=== PATIENT | female | born 2000 | race Caucasian/White ===

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

== ENCOUNTER 2018-11-04 09:04 | Outpatient (CLI) | payer OTHER ==
--- NOTE | 2018-11-04 16:09 | MRI Report ---
Reason: L KNEE PAIN Procedure Date: 11/04/2018 Accession Number: [id number] / [id number] Procedure: MRI - Knee LT W/O CPT Code: FULL RESULT: EXAM: LEFT KNEE MRI WITHOUT CONTRAST EXAM DATE: 11/04/2018 10:14 AM. CLINICAL HISTORY: L KNEE PAIN. Injury 3 years ago. Pain worse recently. COMPARISON: KNEE 3 VIEW LT 10/15/2018 9:00 AM. TECHNIQUE: Multiplanar, multisequence T1-weighted and fluid-sensitive sequences of the knee without contrast. Other: None. FINDINGS: Bones: No fractures or subluxations. No marrow edema. No bone lesions. Articular Cartilage: Unremarkable. Medial Meniscus: The medial meniscus is intact. Lateral Meniscus: The lateral meniscus is intact. Cruciate Ligaments: The anterior and posterior cruciate ligaments are intact. Collateral Ligaments: The medial collateral and lateral collateral ligamentous structures are intact. Tendons: The quadriceps, patellar, semimembranosus, and popliteus tendons are unremarkable. Musculature: No edema or fatty atrophy. Other: No effusion. No popliteal cyst. No loose bodies. The medial and lateral retinacula are intact. The subcutaneous tissues and fat pads are unremarkable. IMPRESSION: No MRI abnormalities in the knee. [facility] MUSCULOSKELETAL RADIOLOGY SECTION
== END 2018-11-04 09:05 | disposition home or self-care (01) ==
LOC: DI 09:04
PROVIDERS: ATTEND Orthopaedic Surgery
DX: M25.562 Pain in left knee (principal)

== ENCOUNTER 2018-12-15 11:16 | Emergency (ER) | payer OTHER ==
[2018-12-15 11:41] LABS: BILIRUBIN,URINE NEGATIVE (NEGATIVE); GLUCOSE, URINE (UA) NEGATIVE (NEGATIVE); KETONES,URINE (UA) NEGATIVE (NEGATIVE); LEUKOCYTE ESTERASE, URINE NEGATIVE (NEGATIVE); NITRITE,URINE NEGATIVE (NEGATIVE); OCCULT BLOOD,URINE TRACE-INTA (NEGATIVE); PH,URINE 7.5 PH (5.0-7.5); PROTEIN,URINE NEGATIVE (NEGATIVE); UROBILINOGEN,URINE 0.2 (NORMAL) E.U./dL (NORMAL)
[2018-12-15 11:44] LABS: CLARITY,URINE CLEAR (CLEAR); HCG UR QUAL NEGATIVE
[2018-12-15 11:46] LABS: BASOPHILS % (AUTO) 0.5 %; EOSINOPHILS # (AUTO) 0.1 10^3/uL (0.0-0.7); EOSINOPHILS % (AUTO) 1.3 %; HGB - HEMOGLOBIN 13.8 g/dL (12.0-16.0); LYMPHOCYTES # (AUTO) 1.8 10^3/uL (1.5-3.5); LYMPHOCYTES % (AUTO) 26.6 %; MEAN CORPUSCULAR HEMOGLOBIN 29.8 pg (27.0-31.0); MEAN CORPUSCULAR HGB CONC 33.3 g/dL (32.0-36.0); MEAN CORPUSCULAR VOLUME 89.7 fL (81.0-99.0); MEAN PLATELET VOLUME 8.4 fL (7.9-10.8); MONOCYTES # (AUTO) 0.5 10^3/uL (0.0-1.0); MONOCYTES % (AUTO) 7.5 %; NEUTROPHILS # (AUTO) 4.3 10^3/uL (1.5-6.6); NEUTROPHILS % (AUTO) 64.1 %; PLT - PLATELET COUNT 203 10^3/uL (130-450); RED BLOOD COUNT 4.62 10^6/uL (4.20-5.40); RED CELL DISTRIBUTION WIDTH 12.8 % (12.0-15.0); WHITE BLOOD COUNT 6.6 x10^3/uL (4.8-10.8)
--- NOTE | 2018-12-15 11:51 | ED Physician Documentation ---
History of Present Illness - Stated complaint Stated Complaint: LOWER ABD PX - Chief complaint Chief Complaint: Abd Pain - History obtained from History obtained from: Patient - History of Present Illness Timing: How many days ago (3) Pain level max: 7 Pain level now: 6 - Additonal information Additional information: 18-year-old female with right lower quadrant abdominal/pelvic pain for the past 3 days. No vaginal bleeding or discharge. No change in sexual partners. Denies any vaginal itching. Has had some nausea but no vomiting. No fevers. Sent in by PCP for CT scan to rule out appendicitis. Nothing makes it better or worse Review of Systems Constitutional: denies: Fever, Chills GI: denies: Vomiting, Constipation, Diarrhea : denies: Dysuria, Frequency, Hesitancy, Now EGA Skin: denies: Rash Musculoskeletal: denies: Neck pain, Back pain Neurologic: denies: Headache PD PAST MEDICAL HISTORY - Past Medical History Past Medical History: Yes GI: Pancreatitis - Past Surgical History Past Surgical History: No - Present Medications Home Medications: Ambulatory Orders Medication Instructions Recorded Confirmed Hydrocodone/Acetaminophen 1 - 2 each PO Q6H PRN #14 tablet 12/15/18 [Hydrocodon-Acetaminophen 5-325] Ondansetron Odt [Zofran] 4 mg TL Q6H PRN #10 tablet 12/15/18 - Allergies Allergies/Adverse Reactions: Allergies Allergy/AdvReac Type Severity Reaction Status Date / Time No Known Drug Allergies Allergy Verified 12/15/18 11:24 - Living Situation Living Situation: reports: With family Living Arrangement: reports: At home - Social History Does the pt smoke?: No Smoking Status: Never smoker Does the pt drink ETOH?: No Does the pt have substance abuse?: No - Family History Family history: reports: Non contributory PD ED PE NORMAL - Vitals Vital signs reviewed: Yes - General General: Alert and oriented X 3, No acute distress, Well developed/nourished - HEENT HEENT: PERRL, Moist mucous membranes - Neck Neck: Supple, no meningeal sign - Cardiac Cardiac: RRR, Strong equal pulses - Respiratory Respiratory: No respiratory distress, Clear bilaterally - Abdomen Abdomen: Soft, Non distended, Other (Tender palpation right lower quadrant, more in the pelvis than at McBurney's point. No peritoneal signs. Negative Rovsing. Negative obturator, negative psoas.) - Female Female : Pt declined - Rectal Rectal: Pt declined - Back Back: No CVA TTP, No spinal TTP - Derm Derm: Warm and dry - Extremities Extremities: No edema - Neuro Neuro: Alert and oriented X 3 - Psych Psych: Normal mood, Normal affect Results - Vitals Vitals: Vital Signs - 24 hr 12/15/18 12/15/18 12/15/18 11:21 13:08 14:11 Temperature 36.8 C 36.6 C Heart Rate 77 77 72 Respiratory 18 14 15 Rate Blood Pressure 128/79 114/75 116/70 O2 Saturation 99 98 100 Oxygen O2 Source Room air - Labs Labs: Laboratory Tests 12/15/18 12/15/18 12/15/18 11:30 11:41 11:41 WBC 6.6 RBC 4.62 Hgb 13.8 Hct 41.5 MCV 89.7 MCH 29.8 MCHC 33.3 RDW 12.8 Plt Count 203 MPV 8.4 Neut # (Auto) 4.3 Lymph # (Auto) 1.8 [place] # (Auto) 0.5 Eos # (Auto) 0.1 Baso # (Auto) 0.0 Absolute Nucleated RBC 0.00 Nucleated RBC % 0.0 Sodium 142 Potassium 3.7 Chloride 107 Carbon Dioxide 25 Anion Gap 10.0 BUN 18 Creatinine 0.8 Estimated GFR (MDRD) 91 Glucose 81 Calcium 9.3 Total Bilirubin 0.7 AST 20 ALT 18 Alkaline Phosphatase 59 Total Protein 7.9 Albumin 4.6 Globulin 3.3 Albumin/Globulin Ratio 1.4 Lipase 43 Urine Color YELLOW Urine Clarity CLEAR Urine pH 7.5 Ur Specific [place] 1.015 Urine Protein NEGATIVE Urine Glucose (UA) NEGATIVE Urine Ketones NEGATIVE Urine Occult Blood TRACE-INTA Urine Nitrite NEGATIVE Urine Bilirubin NEGATIVE Urine Urobilinogen 0.2 (NORMAL) Ur Leukocyte Esterase NEGATIVE Ur Microscopic Review NOT INDICATED Urine Culture Comments NOT INDICATED Urine HCG, Qual NEGATIVE - Rads (name of study) CT abd/pelvis Radiology: Prelim report reviewed, EMP read contemporaneously, See rad report (Etiology of the patient's acute pain is not identified. normal appendix) PD MEDICAL DECISION MAKING - ED course Complexity details: reviewed results, re-evaluated patient, considered differential, d/w patient ED course: Patient with right low pelvic/abdominal pain of unclear etiology. No evidence of PID. Declines a pelvic exam at this time. She is well-appearing, nontoxic. We will follow-up closely with her doctor. She will return if she worsens. Will trial on pain medication for a few days and see how she progresses. Patient counseled regarding signs and symptoms for which I believe and urgent re-evaluation would be necessary. Patient with good understanding of and agreement to plan and is comfortable going home at this time This document was made in part using voice recognition software. While efforts are made to proofread this document, sound alike and grammatical errors may occur. Departure - Departure Disposition: Home, Self Care Clinical Impression: Abdominal pain Qualifiers: Abdominal location: unspecified location Qualified Code(s): R10.9 - Unspecified abdominal pain Condition: Good Instructions: ED Abdominal Pain Unkn Cause Follow-Up: Mulu Amaya MD [Primary Care Provider] - Within 1 week Prescriptions: Hydrocodone/Acetaminophen [Hydrocodon-Acetaminophen 5-325] 1 - 2 each PO Q6H PRN #14 tablet PRN Reason: pain Ondansetron Odt [Zofran] 4 mg TL Q6H PRN #10 tablet PRN Reason: Nausea / Vomiting Comments: Return if you worsen. The cause of your symptoms is unclear today. Your abdominal CT is normal as well as your blood work. Follow-up with your doctor for further care. Do not drink alcohol or drive while on narcotic pain medicine. Note that many narcotic pain relievers also contain tylenol/acetaminophen. Please ensure that your total dose of acetaminophen from all sources does not exceed 3 grams (3000mg) per day. You may constipated on this medication, take a stool softener such as "Colace" twice a day while you are on it. Also recommend a eyfm-ydh-xusolif laxative such as senna or MiraLAX any day that you do not have a bowel movement. If you received narcotic pain medication in the emergency department, do not drive or operate machinery for the next 24 hours. Forms: Activity restrictions Discharge Date/Time: 12/15/18 14:16
[2018-12-15 12:03] LABS: ALBUMIN 4.6 g/dL (3.2-5.5); ALBUMIN/GLOBULIN RATIO 1.4 (1.0-2.2); BILIRUBIN,TOTAL 0.7 mg/dL (0.2-1.0); CALCIUM 9.3 mg/dL (8.5-10.3); CREATININE 0.8 mg/dL (0.4-1.0); TOTAL PROTEIN 7.9 g/dL (6.7-8.2)
--- NOTE | 2018-12-15 13:02 | CT Report ---
Reason: RLQ abd pain Procedure Date: 12/15/2018 Accession Number: [id number] / [id number] Procedure: CT - Abdomen/Pelvis W CPT Code: FULL RESULT: EXAM: CT ABDOMEN AND PELVIS EXAM DATE: 12/15/2018 12:28 PM. CLINICAL HISTORY: Right lower quadrant abdominal pain for 3 days COMPARISONS: None. TECHNIQUE: Routine helical CT imaging was performed through the abdomen and pelvis. IV contrast: OPTI 320 90mL. Enteric contrast: No. Reconstructions: Coronal and sagittal. In accordance with CT protocol optimization, one or more of the following dose reduction techniques were utilized for this exam: automated exposure control, adjustment of mA and/or KV based on patient size, or use of iterative reconstructive technique. FINDINGS: Lung Bases: Unremarkable. Liver: Normal. No masses. Gallbladder/Bile Ducts: Unremarkable. Spleen: Normal. Pancreas: An apparent 1.6 x 0.6 cm cystic lesion in the region of the head of the pancreas is felt to be part of the duodenum, normal anatomy versus duodenal diverticulum. Adrenal Glands: Normal. Kidneys: Normal. No masses or hydronephrosis. Peritoneal Cavity/Bowel: Normal. No free fluid, free air or adenopathy. No masses or acute inflammatory process. The appendix is well visualized and normal. Pelvic Organs: Intrauterine device is seen in expected location. The bladder and visualized pelvic organs are within normal limits. Vasculature: No aneurysms or other significant abnormality. Bones: No significant abnormality. Other: None. IMPRESSION: Etiology of the patient's acute pain is not identified. [facility]
[2018-12-15] MEDS ORDERED: IOVERSOL 320 100 ML VIAL IVP ONE ×2 (13:32→13:56)
[2018-12-15] MEDS ORDERED: KETOROLAC 30 MG/ML VIAL IVP STA (13:37)
[2018-12-15] MEDS ORDERED: ONDANSETRON 4 MG/2 ML VIAL IVP STA (13:43)
[2018-12-15 14:12] VITALS: BP 116/70
== END 2018-12-15 14:16 | disposition home or self-care (01) ==
LOC: ED 11:16
DX: R10.31 Right lower quadrant pain (principal); R10.2 Pelvic and perineal pain; R11.0 Nausea
CPT/HCPCS: 36415; 74177; 80053; 81003; 81025; 83690; 85025; 96374; 99283; Q9967; 81001; 87086

== ENCOUNTER 2018-12-19 13:59 | Outpatient (CLI) | payer OTHER ==
--- NOTE | 2018-12-19 15:48 | Ultrasound Report ---
Reason: RIGHT LOWER ABDOMINAL PAIN Procedure Date: 12/19/2018 Accession Number: [id number] / [id number] Procedure: US - Pelvic w/Transvaginal CPT Code: FULL RESULT: EXAM: PELVIC ULTRASOUND EXAM DATE: 12/19/2018 03:28 PM. CLINICAL HISTORY: RIGHT LOWER ABDOMINAL PAIN. COMPARISON: ABDOMEN/PELVIS W/ 12/15/2018 12:28 PM. TECHNIQUE: Realtime transabdominal pelvic scan performed to identify the uterus and adnexa and as an overview of other pelvic structures, followed by transvaginal scan to provide greater detail of the uterus and adnexa, with static image documentation. FINDINGS: Uterus: 7.5 x 3.2 x 5.0 cm, volume 62.7 cc. Anteverted position. Normal overall size and echotexture. Masses: None. Endometrium: 3 mm. Normal. Cervix: Unremarkable. Right Ovary: 3.9 x 1.9 x 1.9 cm, volume 7.3 cc. Normal echotexture and blood flow. Left Ovary: 4.6 x 1.7 x 2.2 cm, volume 8.9 cc. Normal echotexture and blood flow. Free Fluid: None. Other: Intrauterine device appears appropriately positioned. IMPRESSION: No evidence of ovarian torsion. [facility]
== END 2018-12-19 14:00 | disposition home or self-care (01) ==
LOC: DI 13:59
PROVIDERS: ATTEND Family Medicine
DX: R10.31 Right lower quadrant pain (principal)
CPT/HCPCS: 76830; 76856

== ENCOUNTER 2019-03-18 08:00 | Outpatient (CLI) | payer OTHER ==
[2019-03-18 18:42] LABS: BASOPHILS % (AUTO) 0.5 %; EOSINOPHILS # (AUTO) 0.1 10^3/uL (0.0-0.7); EOSINOPHILS % (AUTO) 0.7 %; HGB - HEMOGLOBIN 13.7 g/dL (12.0-16.0); LYMPHOCYTES # (AUTO) 1.9 10^3/uL (1.5-3.5); LYMPHOCYTES % (AUTO) 21.6 %; MEAN CORPUSCULAR HEMOGLOBIN 29.9 pg (27.0-31.0); MEAN CORPUSCULAR HGB CONC 31.8 g/dL (32.0-36.0); MEAN CORPUSCULAR VOLUME 94.1 fL (81.0-99.0); MEAN PLATELET VOLUME 11.4 fL (7.9-10.8); MONOCYTES # (AUTO) 0.5 10^3/uL (0.0-1.0); MONOCYTES % (AUTO) 5.7 %; NEUTROPHILS # (AUTO) 6.2 10^3/uL (1.5-6.6); NEUTROPHILS % (AUTO) 71.3 %; PLT - PLATELET COUNT 229 10^3/uL (130-450); RED BLOOD COUNT 4.58 10^6/uL (4.20-5.40); RED CELL DISTRIBUTION WIDTH 12.8 % (12.0-15.0); WHITE BLOOD COUNT 8.8 x10^3/uL (4.8-10.8)
[2019-03-18 18:46] LABS: ALBUMIN/GLOBULIN RATIO 1.9 (1.0-2.2); BILIRUBIN,TOTAL 0.9 mg/dL (0.2-1.0); CALCIUM 9.6 mg/dL (8.5-10.3); CREATININE 0.8 mg/dL (0.4-1.0); TOTAL PROTEIN 7.7 g/dL (6.7-8.2)
== END 2019-03-18 23:59 | disposition home or self-care (01) ==
LOC: LAB.WCP 08:00
PROVIDERS: ATTEND Physician Assistant Medical
DX: K86.1 Other chronic pancreatitis (principal)
CPT/HCPCS: 36415; 80053; 83690; 85025

== ENCOUNTER 2019-03-30 19:39 | Emergency (ER) | payer OTHER ==
--- NOTE | 2019-03-30 20:39 | XRAY Report ---
Reason: pain and brusing s/p jarring knee Procedure Date: 03/30/2019 Accession Number: [id number] / [id number] Procedure: XR - Ankle 3 View LT CPT Code: FULL RESULT: EXAM: LEFT ANKLE RADIOGRAPHY EXAM DATE: 03/30/2019 08:03 PM. CLINICAL HISTORY: Pain and brusing s/p jarring knee. COMPARISON: ANKLE 3 VIEW LT 02/21/2018 8:56 AM. TECHNIQUE: 3 views. FINDINGS: Bones: Normal. No fractures or bone lesions. Joints: Normal. No effusion. No subluxations. The ankle mortise is normally aligned. Soft Tissues: Normal. No soft tissue swelling. IMPRESSION: No acute displaced fracture or malalignment. Unremarkable soft tissues. [facility]
--- NOTE | 2019-03-30 20:41 | XRAY Report ---
Reason: pain and brusing s/p jarring knee Procedure Date: 03/30/2019 Accession Number: [id number] / [id number] Procedure: XR - Knee 4 View LT CPT Code: FULL RESULT: EXAM: LEFT KNEE RADIOGRAPHY EXAM DATE: 03/30/2019 08:03 PM. CLINICAL HISTORY: Pain and brusing s/p jarring knee. COMPARISON: None. TECHNIQUE: 3 views. FINDINGS: Bones: Normal. No fractures or bone lesions. Joints: Normal. No effusion. No subluxations. Soft Tissues: Normal. No soft tissue swelling. IMPRESSION: No acute displaced fracture or malalignment. [facility]
--- NOTE | 2019-03-30 22:08 | ED Physician Documentation ---
PD HPI LOWER EXT INJURY - Stated complaint Stated Complaint: LT KNEE AND ANKLE PX - Chief complaint Chief Complaint: Ext Problem - History obtained from History obtained from: Patient - History of Present Illness PD HPI LOW EXT INJURY LOCATION: Left, Knee, Ankle Type of injury: Twist Where injury occurred: [place] Timing - onset: Yesterday (she was sliding into base playing softball and leg caught on the base and it caused bending of ankle and knee.) Timing - duration: Days (1) Timing - details: Abrupt onset, Still present Associated symptoms: No: Weakness, Numbness Similar symptoms before: Has not had sx before Review of Systems Skin: denies: Abrasion (s), Laceration (s) Neurologic: denies: Focal weakness, Numbness PD PAST MEDICAL HISTORY - Past Medical History GI: Pancreatitis Musculoskeletal: None - Past Surgical History Past Surgical History: No - Present Medications Home Medications: Ambulatory Orders Medication Instructions Recorded Confirmed Hydrocodone/Acetaminophen 1 - 2 each PO Q6H PRN #14 tablet 12/15/18 [Hydrocodon-Acetaminophen 5-325] Ondansetron Odt [Zofran] 4 mg TL Q6H PRN #10 tablet 12/15/18 - Allergies Allergies/Adverse Reactions: Allergies Allergy/AdvReac Type Severity Reaction Status Date / Time No Known Drug Allergies Allergy Verified 03/30/19 19:47 - Social History Does the pt smoke?: No Smoking Status: Never smoker Does the pt drink ETOH?: No Does the pt have substance abuse?: No PD ED PE NORMAL - Vitals Vital signs reviewed: Yes - General General: Alert and oriented X 3, No acute distress (limping gait), Well developed/nourished - Derm Derm: Normal color, Warm and dry - Extremities Extremities: Other (left knee with tenderness medially. Ankle tender at medial malleolus without deformity. No gross laxity. Knee without ligament laxity. ) Results - Vitals Vitals: Vital Signs - 24 hr 03/30/19 22:54 Temperature 36.7 C Heart Rate 69 Respiratory 16 Rate Blood Pressure 130/79 O2 Saturation 100 Oxygen O2 Source Room air - Rads (name of study) left knee and ankle Radiology: Prelim report reviewed (no fractures), See rad report PD MEDICAL DECISION MAKING - ED course Complexity details: considered differential, d/w patient Departure - Departure Disposition: 01 Home, Self Care Clinical Impression: Ankle sprain Qualifiers: Encounter type: initial encounter Involved ligament of ankle: deltoid ligament Laterality: left Qualified Code(s): S93.422A - Sprain of deltoid ligament of left ankle, initial encounter Knee sprain Qualifiers: Encounter type: initial encounter Involved ligament of knee: unspecified ligament Laterality: left Qualified Code(s): S83.92XA - Sprain of unspecified site of left knee, initial encounter Condition: Stable Record reviewed to determine appropriate education?: Yes Follow-Up: Letty Polanco PA-C [Primary Care Provider] - Dianne Washington MD [Provider Admit Priv/Credential] - Comments: Continue some ibuprofen or naproxen 2-3 times a day and add Tylenol as needed. Ankle brace and knee brace when up and around for the next several days to week to protect the ligaments on each joint. Follow-up with orthopedics later this week or early next week for reassessment to better assess improvements and if there is any more significant injury. At this point I think is more of a sprain and not any tears of the ligaments or a significant cartilage injury of the knee. The knee brace would be appropriate treatment for some degree of ligament and meniscal injury anyway. Discharge Date/Time: 03/30/19 22:56
[2019-03-30 22:55] VITALS: BP 130/79
== END 2019-03-30 22:56 | disposition home or self-care (01) ==
LOC: ED 19:39
DX: S93.422A Sprain of deltoid ligament of left ankle, initial encounter (principal); S83.92XA Sprain of unspecified site of left knee, initial encounter; X50.1XXA Overexertion from prolonged static or awkward postures, initial encounter; Y93.64 Activity, baseball; Y92.830 Public park as the place of occurrence of the external cause
CPT/HCPCS: 99282; 99284

== ENCOUNTER 2019-10-06 12:59 | Emergency (ER) | payer OTHER ==
--- NOTE | 2019-10-06 13:44 | ED Physician Documentation ---
PD HPI FEMALE - Stated complaint Stated Complaint: FEMALE - Chief complaint Chief Complaint: Abd Pain - History obtained from History obtained from: Patient - History of Present Illness Timing - onset: How many days ago (2) Timing - duration: Days (2) Timing - details: Gradual onset, Still present (much worse today), Waxing and waning Associated symptoms: Vaginal bleeding (she states she started her menstrual period 2 days ago and has significant cramps with it. Pain both sides, but more to the left. Denies vaginal discharge. 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 No: Fever, Vaginal discharge, Genital sore/lesion Contributing factors: Not sexually active. No: , control, Oral contraceptive, Exposed to STD Similar symptoms before: Has not had sx before Recently seen: Not recently seen Review of Systems Constitutional: denies: Fever, Chills Nose: denies: Rhinorrhea / runny nose, Congestion Throat: denies: Sore throat Respiratory: denies: Cough GI: reports: Abdominal Pain, Nausea. denies: Abdominal Swelling, Vomiting, Constipation, Diarrhea : reports: LMP (current). denies: Dysuria, Frequency, Discharge, Irregular menses, Missed period Skin: denies: Rash, Lesions Neurologic: denies: Generalized weakness, Near syncope PD PAST MEDICAL HISTORY - Past Medical History GI: Pancreatitis : None Musculoskeletal: None - Past Surgical History Past Surgical History: No - Present Medications Home Medications: Ambulatory Orders Medication Instructions Recorded Confirmed Hydrocodone/Acetaminophen 1 - 2 each PO Q6H PRN #14 tablet 12/15/18 [Hydrocodon-Acetaminophen 5-325] Ondansetron Odt [Zofran] 4 mg TL Q6H PRN #10 tablet 12/15/18 Hydrocodone/Acetaminophen [[place] 1 each PO Q6H PRN #15 tablet 10/06/19 5-325 Tablet] Naproxen 500 mg PO BID #20 tablet 10/06/19 Ondansetron Odt [Zofran] 4 mg TL Q6H PRN #10 tablet 10/06/19 - Allergies Allergies/Adverse Reactions: Allergies Allergy/AdvReac Type Severity Reaction Status Date / Time No Known Drug Allergies Allergy Verified 03/30/19 19:47 - Social History Does the pt smoke?: No Smoking Status: Never smoker Does the pt drink ETOH?: No Does the pt have substance abuse?: No PD ED PE NORMAL - Vitals Vital signs reviewed: Yes - General General: Alert and oriented X 3, Well developed/nourished, Other (appears in considerable pain) - Neck Neck: Supple, no meningeal sign, No adenopathy - Cardiac Cardiac: RRR, No murmur - Respiratory Respiratory: Clear bilaterally - Abdomen Abdomen: Normal bowel sounds, Soft, Non distended, No organomegaly, Other (tender lower abd left greater than right, with some guarding but no percussion nor rebound tenderness. ) - Female Female : Deferred - Rectal Rectal: Deferred - Back Back: No CVA TTP - Derm Derm: Normal color, Warm and dry - Neuro Neuro: Alert and oriented X 3, No motor deficit, Normal speech Results - Vitals Vitals: Vital Signs - 24 hr 10/06/19 10/06/19 13:03 16:23 Temperature 36.8 C 37.1 C Heart Rate 85 69 Respiratory 16 18 Rate Blood Pressure 137/79 H 106/61 O2 Saturation 100 100 Oxygen O2 Source Room air - Labs Labs: Laboratory Tests 10/06/19 10/06/19 10/06/19 14:27 14:27 14:40 WBC 8.3 RBC 4.51 Hgb 13.7 Hct 41.3 MCV 91.6 MCH 30.4 MCHC 33.2 RDW 13.0 Plt Count 246 MPV 10.6 Neut # (Auto) 6.2 Lymph # (Auto) 1.4 L [place] # (Auto) 0.4 Eos # (Auto) 0.1 Baso # (Auto) 0.1 Absolute Nucleated RBC 0.00 Nucleated RBC % 0.0 Sodium 139 Potassium 3.8 Chloride 106 Carbon Dioxide 26 Anion Gap 7.0 BUN 14 Creatinine 0.9 Estimated GFR (MDRD) 79 L Glucose 86 Calcium 9.4 Total Bilirubin 0.6 AST 16 ALT 16 Alkaline Phosphatase 44 Total Protein 7.8 Albumin 4.8 Globulin 3.0 Albumin/Globulin Ratio 1.6 Lipase 69 H Urine Color YELLOW Urine Clarity CLEAR Urine pH 7.5 Ur Specific [place] 1.015 Urine Protein NEGATIVE Urine Glucose (UA) NEGATIVE Urine Ketones NEGATIVE Urine Occult Blood MODERATE H Urine Nitrite NEGATIVE Urine Bilirubin NEGATIVE Urine Urobilinogen 0.2 (NORMAL) Ur Leukocyte Esterase NEGATIVE Urine RBC 6-10 H Urine WBC 0-3 Ur Squamous Epith Cells NONE SEEN Amorphous Sediment Marked Urine Bacteria None Seen Ur Microscopic Review INDICATED Urine Culture Comments NOT INDICATED Urine HCG, Qual NEGATIVE - Rads (name of study) pelvic U/S Radiology: Prelim report reviewed (normal), See rad report PD MEDICAL DECISION MAKING - ED course Complexity details: reviewed results (normal labs, UA, and pelvic U/S. Does not seem as stone-like for kidney. Discussed with patient further testing such as CT versus treating for dysmenorrhea, and she opted for meds/treatment at this time. ), re-evaluated patient (feeling improved enough. Has to drive home and does not have alternative. Will give meds for home. ), considered differential (dysmenorrhia, consider TOA, PID, UTI/pyelo, torsion, ectopic. She denies STD exposure, nor recent intercourse. Will get labs and U/S. ), d/w patient Departure - Departure Disposition: Home, Self Care Clinical Impression: Lower abdominal pain, Dysmenorrhea Condition: Stable Record reviewed to determine appropriate education?: Yes Instructions: ED Abdominal Pain Unkn Cause, ED Cramping Menstrual Follow-Up: Letty Polanco PA-C [Primary Care Provider] - Prescriptions: Hydrocodone/Acetaminophen [[place] 5-325 Tablet] 1 each PO Q6H PRN #15 tablet PRN Reason: Pain Naproxen 500 mg PO BID #20 tablet Ondansetron Odt [Zofran] 4 mg TL Q6H PRN #10 tablet PRN Reason: Nausea / Vomiting Comments: Stay well-hydrated. Your urine test blood count and pelvic ultrasound did not show any acute abnormalities. I presume this is significant cramping related to your period. Use anti-inflammatories such as naproxen 2-3 times daily for the next week or so. Take with food. Ondansetron if needed for nausea. Add Tylenol or hydrocodone if needed for worse pains. Recheck if not improved well over the next couple of days. Return if worsening or other symptoms such as fever persistent vomiting significant vaginal bleeding or other concerns. Otherwise see how your next periods do and if you have continued significant pains, then further work-up may be needed to evaluate for issues like infection or endometriosis or hormonal levels. Discharge Date/Time: 10/06/19 16:36
[2019-10-06] MEDS ORDERED: ONDANSETRON 4 MG/2 ML VIAL IVP STA (14:02)
[2019-10-06] MEDS ORDERED: SODIUM CHLORIDE 0.9% 1,000 ML IV ONE (14:02)
[2019-10-06] MEDS ORDERED: KETOROLAC 30 MG/ML VIAL IVP STA (14:03)
[2019-10-06 14:31] LABS: BASOPHILS # (AUTO) 0.1 10^3/uL (0.0-0.1); BASOPHILS % (AUTO) 0.6 %; EOSINOPHILS # (AUTO) 0.1 10^3/uL (0.0-0.7); EOSINOPHILS % (AUTO) 1.2 %; HGB - HEMOGLOBIN 13.7 g/dL (12.0-16.0); LYMPHOCYTES # (AUTO) 1.4 10^3/uL (1.5-3.5); LYMPHOCYTES % (AUTO) 17.2 %; MEAN CORPUSCULAR HEMOGLOBIN 30.4 pg (27.0-31.0); MEAN CORPUSCULAR HGB CONC 33.2 g/dL (32.0-36.0); MEAN CORPUSCULAR VOLUME 91.6 fL (81.0-99.0); MEAN PLATELET VOLUME 10.6 fL (7.9-10.8); MONOCYTES # (AUTO) 0.4 10^3/uL (0.0-1.0); MONOCYTES % (AUTO) 5.2 %; NEUTROPHILS # (AUTO) 6.2 10^3/uL (1.5-6.6); NEUTROPHILS % (AUTO) 75.3 %; PLT - PLATELET COUNT 246 10^3/uL (130-450); RED BLOOD COUNT 4.51 10^6/uL (4.20-5.40); WHITE BLOOD COUNT 8.3 x10^3/uL (4.8-10.8)
[2019-10-06 14:43] LABS: ALBUMIN 4.8 g/dL (3.2-5.5); ALBUMIN/GLOBULIN RATIO 1.6 (1.0-2.2); BILIRUBIN,TOTAL 0.6 mg/dL (0.2-1.0); CALCIUM 9.4 mg/dL (8.5-10.3); CREATININE 0.9 mg/dL (0.4-1.0); TOTAL PROTEIN 7.8 g/dL (6.7-8.2)
[2019-10-06 14:52] LABS: BILIRUBIN,URINE NEGATIVE (NEGATIVE); GLUCOSE, URINE (UA) NEGATIVE (NEGATIVE); KETONES,URINE (UA) NEGATIVE (NEGATIVE); LEUKOCYTE ESTERASE, URINE NEGATIVE (NEGATIVE); NITRITE,URINE NEGATIVE (NEGATIVE); OCCULT BLOOD,URINE MODERATE (NEGATIVE); PH,URINE 7.5 PH (5.0-7.5); PROTEIN,URINE NEGATIVE (NEGATIVE); UROBILINOGEN,URINE 0.2 (NORMAL) E.U./dL (NORMAL)
[2019-10-06 14:56] LABS: CLARITY,URINE CLEAR (CLEAR); HCG UR QUAL NEGATIVE
[2019-10-06 15:17] LABS: BACTERIA,URINE None Seen /HPF (None Seen); SQUAMOUS EPITHELIAL CELL,UR NONE SEEN (<= Few)
[2019-10-06 15:18] LABS: AMORPHOUS SEDIMENT,UR Marked /LPF
--- NOTE | 2019-10-06 15:51 | Ultrasound Report ---
Reason: pelvic pain; on menses 2 days Procedure Date: 10/06/2019 Accession Number: [id number] / [id number] Procedure: US - Pelvic w/Transvag+Doppler Ltd CPT Code: Final Report FULL RESULT: EXAM: PELVIC ULTRASOUND WITH DOPPLERS. CLINICAL HISTORY: Pelvic pain; on menses 2 days. COMPARISON: None. TECHNIQUE: Realtime transabdominal imaging performed to identify the uterus and adnexa and as an overview of other pelvic structures, followed by transvaginal imaging for better assessment of the endometrium and adnexa, with static image documentation. Color flow imaging and Doppler spectral analysis was performed to evaluate blood flow to the ovaries given pelvic pain and clinical concern for ovarian torsion. FINDINGS: Uterus: 7.5 x 3.2 x 5.0 cm, volume 62.7 cc. Anteverted position. Normal overall size and echotexture. Masses: None. Endometrium: 2.6 mm. No abnormal flow, endometrial mass or focal thickening. Cervix: Unremarkable. Right Ovary: 3.9 x 1.9 x 1.9 cm, volume 7.3 cc. Normal echotexture. Arterial and venous blood flow are present. PSV 10.1 cm/sec. RI 0.6. Adnexa are unremarkable. Left Ovary: 4.6 x 1.7 x 2.2 cm, volume 8.9 cc. Normal echotexture. Arterial and venous blood flow are present. PSV 10.9 cm/sec. RI 0.7. Adnexa are unremarkable. Free Fluid: None. Other: None. IMPRESSION: 1. Normal pelvic ultrasound. 2. Arterial and venous blood flow are present to the ovaries bilaterally. RADIA
[2019-10-06 16:24] VITALS: BP 106/61
== END 2019-10-06 16:36 | disposition home or self-care (01) ==
LOC: ED 12:59
DX: R10.32 Left lower quadrant pain (principal); N94.6 Dysmenorrhea, unspecified; R11.0 Nausea
CPT/HCPCS: 36415; 76830; 76856; 80053; 81001; 81003; 81025; 83690; 85025; 87086; 93976; 96374; 99284

== ENCOUNTER 2019-12-17 08:00 | Outpatient (CLI) | payer OTHER | END 2019-12-17 23:59 | disposition home or self-care (01) | LOC: LAB.WCP 08:00 | PROVIDERS: ATTEND Physician Assistant Medical | DX: Z33.1 Pregnant state, incidental (principal) | CPT/HCPCS: 36415; 84702 ==

== ENCOUNTER 2019-12-22 22:34 | Emergency (ER) | payer OTHER ==
--- NOTE | 2019-12-22 22:50 | ED Physician Documentation ---
PD HPI FEMALE - Stated complaint Stated Complaint: FEM /5WKS PREG - Chief complaint Chief Complaint: Abd Pain - History obtained from History obtained from: Patient - History of Present Illness Timing - onset: Enter time (19:00), Today Timing - details: Abrupt onset Pain level max: 2 Associated symptoms: Pelvic pain (cramping). 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 c/o vaginal spotting with pelvic cramping since approximately 7 PM tonight. Review of Systems Constitutional: denies: Fever GI: reports: Nausea. denies: Abdominal Pain, Vomiting : reports: Dysuria, Frequency, Vaginal bleeding, Now EGA (5 weeks) PD PAST MEDICAL HISTORY - Past Medical History GI: Pancreatitis : None Musculoskeletal: None - Past Surgical History Past Surgical History: No - Present Medications Home Medications: Ambulatory Orders Medication Instructions Recorded Confirmed Hydrocodone/Acetaminophen 1 - 2 each PO Q6H PRN #14 tablet 12/15/18 [Hydrocodon-Acetaminophen 5-325] Ondansetron Odt [Zofran] 4 mg TL Q6H PRN #10 tablet 12/15/18 Hydrocodone/Acetaminophen [[place] 1 each PO Q6H PRN #15 tablet 10/06/19 5-325 Tablet] Naproxen 500 mg PO BID #20 tablet 10/06/19 Ondansetron Odt [Zofran] 4 mg TL Q6H PRN #10 tablet 10/06/19 - Allergies Allergies/Adverse Reactions: Allergies Allergy/AdvReac Type Severity Reaction Status Date / Time pollen Allergy Unknown Uncoded 12/23/19 07:48 - Social History Does the pt smoke?: No Smoking Status: Never smoker Does the pt drink ETOH?: No Does the pt have substance abuse?: No - Immunizations Immunizations are current?: Yes PD ED PE NORMAL - Vitals Vital signs reviewed: Yes - General General: Alert and oriented X 3, No acute distress, Well developed/nourished - Abdomen Abdomen: Soft, Non tender, Non distended - Back Back: No CVA TTP Results - Vitals Vitals: Vital Signs - 24 hr 12/22/19 12/23/19 22:40 02:11 Temperature 36.8 C Heart Rate 102 H 94 Respiratory 16 16 Rate Blood Pressure 140/80 H 130/78 O2 Saturation 99 100 Oxygen O2 Source Room air - Labs Labs: Laboratory Tests 12/22/19 12/22/19 12/22/19 22:55 23:10 23:10 HCG, Quant [id number] Urine Color LT. YELLOW Urine Clarity CLEAR Urine pH 6.5 Ur Specific [place] <=1.005 Urine Protein NEGATIVE Urine Glucose (UA) NEGATIVE Urine Ketones NEGATIVE Urine Occult Blood SMALL H Urine Nitrite NEGATIVE Urine Bilirubin NEGATIVE Urine Urobilinogen 0.2 (NORMAL) Ur Leukocyte Esterase TRACE H Urine RBC 0-5 Urine WBC 0-3 Ur Squamous Epith Cells FEW Squamous Urine Bacteria Rare Ur Microscopic Review INDICATED Urine Culture Comments INDICATED Blood Type O NEGATIVE - Rads (name of study) first trimester US Radiology: Prelim report reviewed, See rad report PD MEDICAL DECISION MAKING - ED course Complexity details: reviewed results, re-evaluated patient, considered differential, d/w patient Departure - Departure Disposition: 01 Home, Self Care Clinical Impression: Threatened miscarriage Condition: Good Instructions: ED Miscarriage Poss Follow-Up: Danisha Green MD [Provider Admit Priv/Credential] - Discharge Date/Time: 12/23/19 02:12
[2019-12-22 23:00] LABS: BILIRUBIN,URINE NEGATIVE (NEGATIVE); GLUCOSE, URINE (UA) NEGATIVE (NEGATIVE); KETONES,URINE (UA) NEGATIVE (NEGATIVE); LEUKOCYTE ESTERASE, URINE TRACE (NEGATIVE); NITRITE,URINE NEGATIVE (NEGATIVE); OCCULT BLOOD,URINE SMALL (NEGATIVE); PH,URINE 6.5 PH (5.0-7.5); PROTEIN,URINE NEGATIVE (NEGATIVE); UROBILINOGEN,URINE 0.2 (NORMAL) E.U./dL (NORMAL)
[2019-12-22 23:01] LABS: CLARITY,URINE CLEAR (CLEAR)
[2019-12-22 23:08] LABS: RBC,URINE 0-5 /HPF (0-5)
[2019-12-22 23:09] LABS: BACTERIA,URINE Rare /HPF (None Seen); SQUAMOUS EPITHELIAL CELL,UR FEW Squamous (<= Few)
--- NOTE | 2019-12-23 00:44 | Ultrasound Report ---
Reason: + preg, vag bleed Procedure Date: 12/22/2019 Accession Number: [id number] / [id number] Procedure: US - OB First Trimester CPT Code: Final Report FULL RESULT: EXAM: FIRST TRIMESTER OBSTETRIC ULTRASOUND (Less than 11 weeks) EXAM DATE: 12/22/2019 11:00 PM. CLINICAL HISTORY: + preg, vag bleed. LMP: 11/11/2019. COMPARISONS: PEL NON OB W/TV DOP LTD 10/06/2019 3:10 PM. TECHNIQUE: Transabdominal and transvaginal ultrasound examination with static image documentation. CLINICAL DATES: EGA 5 weeks 6 days with RADHA 08/17/2020 based on LMP. ASSESSMENT: Gestational Sac: Single intrauterine. Mean gestational sac diameter: 7.1 mm = 5 weeks 3 days. Gestational sac appeared irregular, and it appeared to change in configuration during the course of the examination. Embryo: Not visualized. Yolk sac: 1 mm. Amniotic fluid: Not accurately assessed at this gestational age. Early placenta: Not visible at this gestational age. Other: No perigestational fluid collection demonstrated. MATERNAL STRUCTURES: Uterus: Retroverted. Unremarkable. Cervix: Closed. Right Ovary/Adnexa: The ovary measures 3.1 x 1.8 x 1.8 cm, volume 5 cc. 6 mm paraovarian cyst. Left Ovary/Adnexa: The ovary measures 3.4 x 2.0 x 2.1 cm, volume 8 cc. 2.1 cm corpus luteum Free Fluid: Small amount in the cul-de-sac, with a thin septation.. Other: None. IMPRESSION: Irregular gestational sac within the endometrial canal, with yolk sac present. It is to small for visualization of pole or heart motion. Differential considerations include early normal and in progress. Follow-up serial quantitative beta-hCG, and rescan in 14 days for viability, if clinically warranted.. RADIA
[2019-12-23] MEDS: RHO(D) IMMUNE GLOBULIN 300 MCG SYRINGE IM STA (02:09)
[2019-12-23 02:11] VITALS: BP 130/78
== END 2019-12-23 02:12 | disposition home or self-care (01) ==
LOC: ED 22:34
DX: O20.0 Threatened abortion (principal); Z3A.01 Less than 8 weeks gestation of pregnancy; O34.81 Maternal care for other abnormalities of pelvic organs, first trimester; N83.12 Corpus luteum cyst of left ovary; N83.201 Unspecified ovarian cyst, right side
CPT/HCPCS: 36415; 76801; 76817; 80053; 81001; 81003; 83690; 84702; 85025; 86900; 86901; 87086; 96372; 99283; 99284

== ENCOUNTER 2019-12-25 22:31 | Outpatient (CLI) | payer OTHER ==
[2019-12-25 23:02] LABS: BILIRUBIN,URINE NEGATIVE (NEGATIVE); GLUCOSE, URINE (UA) NEGATIVE (NEGATIVE); KETONES,URINE (UA) NEGATIVE (NEGATIVE); LEUKOCYTE ESTERASE, URINE NEGATIVE (NEGATIVE); NITRITE,URINE NEGATIVE (NEGATIVE); OCCULT BLOOD,URINE MODERATE (NEGATIVE); PROTEIN,URINE NEGATIVE (NEGATIVE); UROBILINOGEN,URINE 0.2 (NORMAL) E.U./dL (NORMAL)
[2019-12-25 23:03] LABS: CLARITY,URINE CLEAR (CLEAR)
[2019-12-25 23:08] LABS: BACTERIA,URINE Rare /HPF (None Seen); RBC,URINE 0-5 /HPF (0-5); SQUAMOUS EPITHELIAL CELL,UR RARE Squamous (<= Few)
== END 2019-12-25 22:32 | disposition home or self-care (01) ==
LOC: LAB 22:31
PROVIDERS: ATTEND Obstetrics & Gynecology
DX: O99.89 Other specified diseases and conditions complicating pregnancy, childbirth and the puerperium (principal); R30.0 Dysuria; O20.0 Threatened abortion
CPT/HCPCS: 36415; 81001; 84702; 87086

== ENCOUNTER 2020-01-05 09:30 | Outpatient (CLI) | payer OTHER ==
--- NOTE | 2020-01-06 12:58 | Ultrasound Report ---
Reason: THREATENED ,ANTEPARTUM Procedure Date: 01/05/2020 Accession Number: [id number] / [id number] Procedure: US - OB First Trimester CPT Code: Final Report FULL RESULT: EXAM: FIRST TRIMESTER OBSTETRIC ULTRASOUND (Less than 11 weeks) EXAM DATE: 01/05/2020 10:14 AM. CLINICAL HISTORY: THREATENED , ANTEPARTUM. LMP: 11/11/2019. COMPARISONS: OB FIRST TRIMESTER 12/22/2019 11:12 PM. TECHNIQUE: Transabdominal and transvaginal ultrasound examination with static image documentation. CLINICAL DATES: EGA 7 weeks 6 days with RADHA 08/17/2020 based on LMP. EGA 7 weeks 3 days with RADHA 08/20/2020 based on prior ultrasound ASSESSMENT: Gestational Sac: Single intrauterine. Normal shape. Mean gestational sac diameter: 21.1 mm = 7 weeks 0 days. Embryo: CRL (crown-rump length) 9 mm = 6 weeks 6 days. Cardiac activity: 139 beats per minute. Yolk sac: 2.9 mm. Amniotic fluid: Not accurately assessed at this gestational age. Early placenta: Not visible at this gestational age. Other: Small perigestational fluid collection demonstrated. MATERNAL STRUCTURES: Uterus: Anteverted/. Unremarkable. Cervix: Closed. Right Ovary/Adnexa: The ovary measures 3.1 x 2.2 x 2 cm, volume 7.1 cc. Unremarkable. Left Ovary/Adnexa: The ovary measures 2.7 x 1.7 x 1.7 cm, volume 4.1 cc. Unremarkable. Free Fluid: None. Other: None. IMPRESSION: 1. Single viable intrauterine at EGA 6 weeks 6 days with RADHA 08/24/2020 based on crown-rump length, which is discordant with clinical dates. This is concordant with dating from prior ultrasound 2. Small perigestational fluid collection RADIA
== END 2020-01-05 09:31 | disposition home or self-care (01) ==
LOC: DI 09:30
PROVIDERS: ATTEND Obstetrics & Gynecology
DX: O20.0 Threatened abortion (principal); Z3A.01 Less than 8 weeks gestation of pregnancy
CPT/HCPCS: 76801; 76817

== ENCOUNTER 2020-01-29 13:39 | Outpatient (CLI) | payer OTHER ==
[2020-01-29 13:40] LABS: MUDS CUTOFF CONCENTRATIONS CUTOFF CONC BELOW:
[2020-01-29 18:07] LABS: BASOPHILS % (AUTO) 0.2 %; EOSINOPHILS % (AUTO) 0.3 %; HGB - HEMOGLOBIN 13.1 g/dL (12.0-16.0); LYMPHOCYTES # (AUTO) 1.4 10^3/uL (1.5-3.5); MEAN CORPUSCULAR HEMOGLOBIN 31.6 pg (27.0-31.0); MEAN CORPUSCULAR HGB CONC 34.1 g/dL (32.0-36.0); MEAN CORPUSCULAR VOLUME 92.8 fL (81.0-99.0); MEAN PLATELET VOLUME 11.5 fL (7.9-10.8); MONOCYTES # (AUTO) 0.5 10^3/uL (0.0-1.0); MONOCYTES % (AUTO) 3.8 %; NEUTROPHILS # (AUTO) 10.5 10^3/uL (1.5-6.6); NEUTROPHILS % (AUTO) 84.2 %; PLT - PLATELET COUNT 242 10^3/uL (130-450); RED BLOOD COUNT 4.14 10^6/uL (4.20-5.40); RED CELL DISTRIBUTION WIDTH 13.1 % (12.0-15.0); WHITE BLOOD COUNT 12.4 x10^3/uL (4.8-10.8)
[2020-01-29 18:08] LABS: BILIRUBIN,URINE NEGATIVE (NEGATIVE); GLUCOSE, URINE (UA) NEGATIVE (NEGATIVE); KETONES,URINE (UA) TRACE mg/dL (NEGATIVE); LEUKOCYTE ESTERASE, URINE NEGATIVE (NEGATIVE); NITRITE,URINE NEGATIVE (NEGATIVE); OCCULT BLOOD,URINE SMALL (NEGATIVE); PROTEIN,URINE NEGATIVE (NEGATIVE); UROBILINOGEN,URINE 0.2 (NORMAL) E.U./dL (NORMAL)
[2020-01-29 18:11] LABS: CLARITY,URINE CLOUDY (CLEAR)
[2020-01-29 18:24] LABS: AMPHETAMINE SCREEN,URINE NEGATIVE (NEGATIVE); BENZODIAZEPINES SCREEN, URINE NEGATIVE (NEGATIVE); COCAINE SCREEN URINE NEGATIVE (NEGATIVE); METHADONE SCREEN, URINE NEGATIVE (NEGATIVE); METHAMPHETAMINES SCREEN, URINE NEGATIVE (NEGATIVE); OPIATE SCREEN, URINE NEGATIVE (NEGATIVE); OXYCODONE SCREEN, URINE NEGATIVE (NEGATIVE); PROPOXYPHENE SCREEN, URINE NEGATIVE (NEGATIVE); TRICYCLIC ANTIDEPRESSANT,URINE NEGATIVE (NEGATIVE)
[2020-01-29 19:35] LABS: AMORPHOUS SEDIMENT,UR Marked /LPF; BACTERIA,URINE None Seen /HPF (None Seen); RBC,URINE 0-5 /HPF (0-5); SQUAMOUS EPITHELIAL CELL,UR FEW Squamous (<= Few)
[2020-01-29 23:31] LABS: TRICHOMONAS VAGINALIS DNA NEGATIVE (NEGATIVE)
[2020-01-30 10:06] LABS: HIV AG/AB 4TH GEN NON-REACTIVE (NON-REACTIVE)
[2020-01-30 13:00] LABS: HEPATITIS C ANTIBODY REACTIVE (NON-REACTIVE)
[2020-01-30 13:14] LABS: HEPATITIS B SURFACE ANTIGEN NON-REACTIVE (NON-REACTIVE)
== END 2020-01-29 23:59 | disposition home or self-care (01) ==
LOC: LAB.WCP 13:39
PROVIDERS: ATTEND Obstetrics & Gynecology
DX: Z34.90 Encounter for supervision of normal pregnancy, unspecified, unspecified trimester (principal)
CPT/HCPCS: 36415; 80306; 81001; 81599; 85025; 86592; 86762; 86803; 86850; 86870; 86900; 86901; 87086; 87340; 87389; 87491; 87591; 87661

== ENCOUNTER 2020-02-17 08:00 | Outpatient (CLI) | payer OTHER | END 2020-02-17 23:59 | disposition home or self-care (01) | LOC: LAB.WCP 08:00 | PROVIDERS: ATTEND Obstetrics & Gynecology | DX: B17.10 Acute hepatitis C without hepatic coma (principal) | CPT/HCPCS: 36415; 86317; 86708 ==

== ENCOUNTER 2020-03-03 08:00 | Outpatient (CLI) | payer OTHER ==
[2020-03-03 18:53] LABS: ALBUMIN 4.1 g/dL (3.2-5.5); ALBUMIN/GLOBULIN RATIO 1.3 (1.0-2.2); BILIRUBIN,TOTAL 0.7 mg/dL (0.2-1.0); CALCIUM 9.3 mg/dL (8.5-10.3); CREATININE 0.4 mg/dL (0.4-1.0); TOTAL PROTEIN 7.2 g/dL (6.7-8.2)
== END 2020-03-03 23:59 | disposition home or self-care (01) ==
LOC: LAB.WCP 08:00
PROVIDERS: ATTEND Obstetrics & Gynecology
DX: O98.411 Viral hepatitis complicating pregnancy, first trimester (principal); B17.10 Acute hepatitis C without hepatic coma; Z36.8A Encounter for antenatal screening for other genetic defects; Z3A.11 11 weeks gestation of pregnancy
CPT/HCPCS: 36415; 80053; 81511; 81599

== ENCOUNTER 2020-03-16 12:44 | Outpatient (CLI) | payer OTHER | END 2020-03-16 23:59 | disposition home or self-care (01) | LOC: LAB.R 12:44 | PROVIDERS: ATTEND Advanced Practice Midwife | DX: R30.0 Dysuria (principal) | CPT/HCPCS: 87086 ==

== ENCOUNTER 2020-05-15 13:13 | Outpatient (CLI) | payer OTHER ==
--- NOTE | 2020-05-15 13:37 | PROVIDER PROGRESS NOTE ---
Subjective - Subjective Subjective: Here for spotting, has had intermittently during , has had many days of spotting in the past 2w. Her primary OB said to watch for bleeding becoming more red. Her spotting went from brown to pink and so she was asked to come in. Has a few spots on underwear--not just with wiping. No vag itching, odor, or change in discharge. No recent sexual activity. No LOF. Good FM. Feels a sensation of heaviness in the pelvis but no UC Alert, NAD Abd soft, nt/nd EFG normal Vag pink and moist with clumpy opaque discharge SVE closed/long/high Doppler FHT normal Bedside US: CL 4.2cm, no previa A/P: 19yo at 24w with spotting due to exposed ectropion + yeast vaginitis. No previa, no PTL, cervical length is great. OK to have sex and expect spotting. RTC for flow like a period. Take an OTC yeast infection medication for 7d.
[2020-05-15 14:17] VITALS: BP 128/76
[2020-05-15 14:32] LABS: BILIRUBIN,URINE NEGATIVE (NEGATIVE); GLUCOSE, URINE (UA) NEGATIVE (NEGATIVE); KETONES,URINE (UA) NEGATIVE (NEGATIVE); LEUKOCYTE ESTERASE, URINE TRACE (NEGATIVE); NITRITE,URINE NEGATIVE (NEGATIVE); OCCULT BLOOD,URINE NEGATIVE (NEGATIVE); PROTEIN,URINE NEGATIVE (NEGATIVE); UROBILINOGEN,URINE 0.2 (NORMAL) E.U./dL (NORMAL)
[2020-05-15 14:40] LABS: CLARITY,URINE CLEAR (CLEAR)
[2020-05-15 14:52] LABS: BACTERIA,URINE Few /HPF (None Seen); RBC,URINE 0-5 /HPF (0-5); SQUAMOUS EPITHELIAL CELL,UR MOD Squamous (<= Few)
== END 2020-05-15 13:45 | disposition home or self-care (01) ==
LOC: WFO 13:13 → FBP 13:14 → WFO 13:45
PROVIDERS: ATTEND Obstetrics & Gynecology
DX: O98.812 Other maternal infectious and parasitic diseases complicating pregnancy, second trimester (principal); B37.3 Candidiasis of vulva and vagina; Z3A.24 24 weeks gestation of pregnancy
CPT/HCPCS: 81001; 87086; 87661; 87801; 99213

== ENCOUNTER 2020-05-27 08:45 | Outpatient (CLI) | payer OTHER ==
[2020-05-27 09:58] LABS: MEAN CORPUSCULAR HEMOGLOBIN 31.2 pg (27.0-31.0); MEAN CORPUSCULAR HGB CONC 32.6 g/dL (32.0-36.0); MEAN CORPUSCULAR VOLUME 95.5 fL (81.0-99.0); MEAN PLATELET VOLUME 10.3 fL (7.9-10.8); RED BLOOD COUNT 3.53 10^6/uL (4.20-5.40); RED CELL DISTRIBUTION WIDTH 13.7 % (12.0-15.0); WHITE BLOOD COUNT 10.3 x10^3/uL (4.8-10.8)
== END 2020-05-27 08:46 | disposition home or self-care (01) ==
LOC: LAB 08:45
PROVIDERS: ATTEND Obstetrics & Gynecology
DX: Z34.90 Encounter for supervision of normal pregnancy, unspecified, unspecified trimester (principal)
CPT/HCPCS: 36415; 82950; 85027; 86850

== ENCOUNTER 2020-06-03 15:37 | Outpatient (CLI) | payer OTHER ==
[2020-06-04 13:02] LABS: HEPATITIS C ANTIBODY NON-REACTIVE (NON-REACTIVE)
== END 2020-06-03 15:38 | disposition home or self-care (01) ==
LOC: LAB 15:37
PROVIDERS: ATTEND Obstetrics & Gynecology
DX: B17.10 Acute hepatitis C without hepatic coma (principal)
CPT/HCPCS: 36415; 86803

== ENCOUNTER 2020-06-28 14:00 | Outpatient (CLI) | payer OTHER ==
[2020-06-28 14:23] VITALS: BP 135/78
[2020-06-28 15:08] LABS: BASOPHILS % (AUTO) 0.3 %; EOSINOPHILS % (AUTO) 0.3 %; HGB - HEMOGLOBIN 11.4 g/dL (12.0-16.0); LYMPHOCYTES # (AUTO) 1.2 10^3/uL (1.5-3.5); LYMPHOCYTES % (AUTO) 10.9 %; MEAN CORPUSCULAR HEMOGLOBIN 31.9 pg (27.0-31.0); MEAN CORPUSCULAR HGB CONC 33.8 g/dL (32.0-36.0); MEAN CORPUSCULAR VOLUME 94.4 fL (81.0-99.0); MEAN PLATELET VOLUME 10.1 fL (7.9-10.8); MONOCYTES # (AUTO) 0.7 10^3/uL (0.0-1.0); MONOCYTES % (AUTO) 6.5 %; NEUTROPHILS # (AUTO) 9.2 10^3/uL (1.5-6.6); NEUTROPHILS % (AUTO) 81.4 %; PLT - PLATELET COUNT 185 10^3/uL (130-450); RED BLOOD COUNT 3.57 10^6/uL (4.20-5.40); RED CELL DISTRIBUTION WIDTH 13.5 % (12.0-15.0); WHITE BLOOD COUNT 11.2 x10^3/uL (4.8-10.8)
[2020-06-28] MEDS ORDERED: RHO(D) IMMUNE GLOBULIN 300 MCG SYRINGE IM ONE (16:43)
--- NOTE | 2020-06-28 16:53 | PROVIDER PROGRESS NOTE ---
- HPI Chief Complaint: Other (single episode of bleeding at 31 weeks. No trauma. minimal contractions. US showes 3.5 cm closed cervix. Placenta posterior and didtant from the Cx.) Current : Current EDU 08/24/20 Gestation 31 Weeks and 6 Days 1 Para 0 Vital Signs Temperature 37.3 C 06/28/20 14:19 Heart Rate 105 H 06/28/20 14:19 Respiratory Rate 06/28/20 14:19 Blood Pressure 135/78 H 06/28/20 14:19 Temperature 37.3 C 06/28/20 14:19 Heart Rate 105 H 06/28/20 14:19 Respiratory Rate 06/28/20 14:19 Blood Pressure 135/78 H 06/28/20 14:19 O2 Saturation - Procedures Service Date of procedure: 06/28/20 Procedure Details: NST, US adn Rhogam. - Plan Plan: morntor for further bleeding.
--- NOTE | 2020-06-28 16:55 | Ultrasound Report ---
PROCEDURE: OB Transvaginal INDICATIONS: bright red bleeing OUTSIDE/PRIOR DATING DATA: Last menstrual period (LMP): 11/11/2019. LMP-based estimated date of delivery (RADHA): 08/17/2020. First dating scan (date and location): 01/05/2020. Estimated date of delivery (RADHA) from first dating scan: 08/24/2020. TECHNIQUE: Real-time scanning was performed of the fetus, with image documentation. Endovaginal scanning: Endovaginal scanning was performed to better evaluate cervical length. COMPARISON: None. FINDINGS: A single living intrauterine gestation is present. Presentation: Breech Placenta: Placental position is anterior fundal, without previa. Amniotic fluid index: 11.1 cm, 17th percentile for gestational age. Largest vertical pocket measured 4.1 cm heart rate: 135 beats per minutes. Maternal cervical canal: 3.8 cm long; normal length is 2.5 cm or more. Maternal cervix appears close d. No funneling identified. Estimated gestational age from initial scan: 31 weeks and 6 days. IMPRESSION: Single living intrauterine gestation with estimated gestational age of approximately 31 weeks and 6 d ays. Maternal cervical length measured 3.8 cm by transvaginal measurements. Four-quadrant LATRICE measured 11.1 cm with largest vertical pocket measuring 4.1 cm. No evidence for placental abruption or placenta previa. Reviewed by: Chandana Hand MD on 06/28/2020 4:53 PM PST Approved by: Chandana Hand MD on 06/28/2020 4:53 PM PST Station ID: [id number]
== END 2020-06-28 17:13 | disposition home or self-care (01) ==
LOC: WFO 14:00 → FBP 14:02 → WFO 17:13
PROVIDERS: ATTEND Obstetrics & Gynecology
DX: O46.93 Antepartum hemorrhage, unspecified, third trimester (principal); O32.1XX0 Maternal care for breech presentation, not applicable or unspecified; Z3A.31 31 weeks gestation of pregnancy
CPT/HCPCS: 85025; 96372; 99213

== ENCOUNTER 2020-06-30 03:29 | Outpatient (CLI) | payer OTHER ==
[2020-06-30] MEDS ORDERED: oxyCODONE 5 MG TABLET PO PRN (03:36)
[2020-06-30] MEDS ORDERED: METOCLOPRAMIDE 10 MG TABLET PO SCH (03:47)
[2020-06-30 04:15] LABS: BASOPHILS % (AUTO) 0.3 %; EOSINOPHILS % (AUTO) 0.3 %; HGB - HEMOGLOBIN 11.3 g/dL (12.0-16.0); LYMPHOCYTES # (AUTO) 1.8 10^3/uL (1.5-3.5); LYMPHOCYTES % (AUTO) 13.7 %; MEAN CORPUSCULAR HEMOGLOBIN 31.6 pg (27.0-31.0); MEAN CORPUSCULAR HGB CONC 33.5 g/dL (32.0-36.0); MEAN CORPUSCULAR VOLUME 94.1 fL (81.0-99.0); MEAN PLATELET VOLUME 10.3 fL (7.9-10.8); MONOCYTES # (AUTO) 0.7 10^3/uL (0.0-1.0); MONOCYTES % (AUTO) 5.6 %; NEUTROPHILS # (AUTO) 10.4 10^3/uL (1.5-6.6); NEUTROPHILS % (AUTO) 79.3 %; PLT - PLATELET COUNT 177 10^3/uL (130-450); RED BLOOD COUNT 3.58 10^6/uL (4.20-5.40); RED CELL DISTRIBUTION WIDTH 13.5 % (12.0-15.0); WHITE BLOOD COUNT 13.1 x10^3/uL (4.8-10.8)
[2020-06-30 04:21] VITALS: BP 127/75
[2020-06-30 04:27] LABS: ALBUMIN 3.3 g/dL (3.2-5.5); ALBUMIN/GLOBULIN RATIO 1.1 (1.0-2.2); BILIRUBIN,TOTAL 0.4 mg/dL (0.2-1.0); CALCIUM 8.6 mg/dL (8.5-10.3); CREATININE 0.5 mg/dL (0.4-1.0); TOTAL PROTEIN 6.4 g/dL (6.7-8.2)
[2020-06-30 04:34] LABS: CREATININE,URINE 118.3 mg/dL; PROTEIN/CREATININE RATIO,URINE 0.1 (<=0.2)
--- NOTE | 2020-07-01 18:23 | PROVIDER PROGRESS NOTE ---
- HPI Chief Complaint: Other (Patient is a 20 yo at 32+1 wga who presents with ALVARENGA Did not respond to tylenol. No vision changes, no RUQ pain. Kept patient from sleeping. Endorses FM, denies LOF/VB/CTX) Current : Current EDU 08/24/20 Gestation 32 Weeks and 1 Days 1 Para 0 Vital Signs Temperature 98.7 F 06/30/20 03:37 Heart Rate 100 06/30/20 03:37 Respiratory Rate 15 06/30/20 03:37 Blood Pressure 123/75 06/30/20 03:37 O2 Saturation 100 06/30/20 03:37 Temperature 98.7 F 06/30/20 03:37 Heart Rate 100 06/30/20 03:37 Respiratory Rate 15 06/30/20 03:37 Blood Pressure 127/75 06/30/20 04:21 O2 Saturation 100 06/30/20 03:37 - Exam GEN: NAD HEENT: NCAT. No photophobia CV: RRR RESP: CTAB ABD: gravid, S&NT/ND EXt: WWP PSYCH: appopriate affect NEURO: A&O EFM 125 mod crow 15x15 accels no decels TOCO: quiet - Procedures NST Procedure: NST Procedure Start Date 06/30/20 Start Time 03:39 Stop Time 04:12 Vibroacoustic Stimulation Used No Patient States Movement Yes Service Date of procedure: 06/30/20 Findings: Patient reported ALVARENGA and was unable treat pain or assess BP at home PIH rule out with normal BP and resolution of ALVARENGA. ALVARENGA resolved with reglan and oxycodone Provided for Rx for reglan for future ALVARENGA FWB: Cat I tracing Reviewed warning signs DC to home
== END 2020-06-30 05:16 | disposition home or self-care (01) ==
LOC: WFO 03:29 → FBP 03:31 → WFO 05:16
PROVIDERS: ATTEND Obstetrics & Gynecology
DX: O99.891 Other specified diseases and conditions complicating pregnancy (principal); R51.9 Headache, unspecified
CPT/HCPCS: 36415; 59025; 80053; 82570; 84156; 85025; 99213; A9270

== ENCOUNTER → 2020-07-19 | Outpatient (CLI) | payer OTHER ==
[2020-07-19 18:29] LABS: HGB - HEMOGLOBIN 12.1 g/dL (12.0-16.0); MEAN CORPUSCULAR HEMOGLOBIN 30.8 pg (27.0-31.0); MEAN CORPUSCULAR HGB CONC 32.4 g/dL (32.0-36.0); MEAN CORPUSCULAR VOLUME 95.2 fL (81.0-99.0); MEAN PLATELET VOLUME 11.8 fL (7.9-10.8); RED BLOOD COUNT 3.93 10^6/uL (4.20-5.40); RED CELL DISTRIBUTION WIDTH 13.5 % (12.0-15.0); WHITE BLOOD COUNT 13.4 x10^3/uL (4.8-10.8)
[2020-07-19 18:50] LABS: ALBUMIN 3.4 g/dL (3.2-5.5); ALBUMIN/GLOBULIN RATIO 1.1 (1.0-2.2); BILIRUBIN,TOTAL 0.7 mg/dL (0.2-1.0); CALCIUM 8.9 mg/dL (8.5-10.3); CREATININE 0.6 mg/dL (0.4-1.0); TOTAL PROTEIN 6.6 g/dL (6.7-8.2)
[2020-07-20 12:37] LABS: HEPATITIS C ANTIBODY NON-REACTIVE (NON-REACTIVE)
== END ==
LOC: LAB.WCP 08:00
PROVIDERS: ATTEND Obstetrics & Gynecology
DX: O21.9 Vomiting of pregnancy, unspecified (principal); B17.0 Acute delta-(super) infection of hepatitis B carrier
CPT/HCPCS: 36415; 80053; 85027; 86803

== ENCOUNTER 2020-08-02 08:00 | Outpatient (CLI) | payer OTHER | END 2020-08-02 08:01 | disposition home or self-care (01) | LOC: LAB.R 08:00 | PROVIDERS: ATTEND Obstetrics & Gynecology | DX: Z36.85 Encounter for antenatal screening for Streptococcus B (principal) | CPT/HCPCS: 87797 ==

== ENCOUNTER 2020-08-09 09:42 | Outpatient (CLI) | payer OTHER ==
[2020-08-09 10:24] LABS: BASOPHILS % (AUTO) 0.4 %; EOSINOPHILS % (AUTO) 0.4 %; LYMPHOCYTES # (AUTO) 1.5 10^3/uL (1.5-3.5); MEAN CORPUSCULAR HEMOGLOBIN 31.2 pg (27.0-31.0); MEAN CORPUSCULAR HGB CONC 33.6 g/dL (32.0-36.0); MEAN CORPUSCULAR VOLUME 92.7 fL (81.0-99.0); MEAN PLATELET VOLUME 11.1 fL (7.9-10.8); MONOCYTES # (AUTO) 0.8 10^3/uL (0.0-1.0); MONOCYTES % (AUTO) 7.9 %; NEUTROPHILS # (AUTO) 8.1 10^3/uL (1.5-6.6); NEUTROPHILS % (AUTO) 76.9 %; PLT - PLATELET COUNT 177 10^3/uL (130-450); RED BLOOD COUNT 3.85 10^6/uL (4.20-5.40); RED CELL DISTRIBUTION WIDTH 13.2 % (12.0-15.0); WHITE BLOOD COUNT 10.5 x10^3/uL (4.8-10.8)
[2020-08-09 10:39] LABS: ALBUMIN 3.2 g/dL (3.2-5.5); BILIRUBIN,TOTAL 0.3 mg/dL (0.2-1.0); CALCIUM 8.7 mg/dL (8.5-10.3); CREATININE 0.6 mg/dL (0.4-1.0); TOTAL PROTEIN 6.3 g/dL (6.7-8.2); URIC ACID 5.5 mg/dL (2.6-7.2)
[2020-08-09 10:45] VITALS: BP 120/71
[2020-08-09 11:01] LABS: CREATININE,URINE 78.8 mg/dL; PROTEIN/CREATININE RATIO,URINE 0.1 (<=0.2)
--- NOTE | 2020-08-17 14:10 | PROCEDURE REPORT ---
- HPI Diagnosis/Indication for NST: Gestational Hypertension Current EDU 08/24/20 Gestation 37 Weeks and 6 Days 1 Para 0 Vital Signs Temperature 37.1 C 08/09/20 09:56 Heart Rate 101 H 08/09/20 09:56 Respiratory Rate 18 08/09/20 09:56 Blood Pressure 128/83 H 08/09/20 09:56 O2 Saturation 99 08/09/20 09:56 Temperature 37.1 C 08/09/20 09:56 Heart Rate 97 08/09/20 10:44 Respiratory Rate 18 08/09/20 10:44 Blood Pressure 120/71 08/09/20 10:44 O2 Saturation 98 08/09/20 10:44 - NST Procedure NST Procedure Start Date 08/09/20 Start Time 09:51 Stop Time 10:46 Vibroacoustic Stimulation Used No Patient States Movement Yes - Results and Plan Findings/Impression: REACTIVE NST Plan: DOS 08/09/2020 CONTINUE ANTINATAL TESTING
== END 2020-08-09 11:20 | disposition home or self-care (01) ==
LOC: WFO 09:42 → FBP 09:45 → WFO 11:20
PROVIDERS: ATTEND Obstetrics & Gynecology
DX: O13.3 Gestational [pregnancy-induced] hypertension without significant proteinuria, third trimester (principal); Z3A.37 37 weeks gestation of pregnancy
CPT/HCPCS: 59025; 80053; 82570; 84156; 84550; 85025

== ENCOUNTER 2020-08-09 21:41 | Outpatient (CLI) | payer OTHER ==
[2020-08-09] MEDS ORDERED: METOCLOPRAMIDE 10 MG TABLET PO SCH (23:45)
[2020-08-10 00:18] VITALS: BP 132/75
--- NOTE | 2020-08-10 01:36 | PROVIDER PROGRESS NOTE ---
- HPI Chief Complaint: Hypertension/PIH Current : Current Patient is a 20 yo at 37+6 wga here for PIH assessment. Patient had one mildly elevated blood pressure in clinic this am and was seen in triage for pre-eclampsia evaluation. Labs were unremarkable and she did nto have any other elevated BPS. She had been home and had a headache that caused emesis. No vision change or RUQ pain. Of note, patient has had these headaches throughout the and has been seen in triage for this reason. Does not use medication to manage ALVARENGA pain. + FM. No LOF or VB. No CTX. Has been tracking BPs at e had one blood pressure of 142/90 today and no other elevated blood pressures. Unnsure of timing relative to isolated elevated blood pressure in clinic today. EDU 08/24/20 Gestation 37 Weeks and 6 Days 1 Para 1 Vital Signs Temperature 99.1 F 08/09/20 21:51 Heart Rate 120 H 08/09/20 21:51 Respiratory Rate 16 08/09/20 21:51 Blood Pressure 138/82 H 08/09/20 21:51 O2 Saturation 100 08/09/20 21:51 Temperature 99.1 F 08/09/20 21:52 Heart Rate 94 08/09/20 23:15 Respiratory Rate 16 08/09/20 22:45 Blood Pressure 132/75 H 08/09/20 23:15 O2 Saturation 100 08/09/20 23:15 - Exam GEN: NAD HEAD: NCAT EYES: No scleral icterus or conjunctival injection NECK: No cervical LAD or TM CV: RRR RESP: CTAB, normal effort ABD: gravid, S&NT/ND PSYCH: appropriate affect NEURO: alert and oriented, normal gait and coordination EXT: WWP EFM 135 mod crow 15x15 accels no decels TOCO: 1 CTX - Procedures NST Procedure: NST Procedure Start Time 09:51 Stop Time 10:46 Service Date of procedure: 08/09/20 Procedure Details: Cat I tracing Findings: 20 yo at 37+ 6 ega here for pre-eclampsia evaluation NO elevated blood pressures while under observation I reviewed all of patient's BP records during the in both [facility] Isolated mild range pressure today with all other measures high normal. Negative labs this am ALVARENGA present but no different from baseline headache for which patient has been seen multiple times in . Relieved with reglan Not meeting criteria for IOL at this time Discharged to home with review of warning signs DX: Headache in
== END 2020-08-10 | disposition home or self-care (01) ==
LOC: WFO 21:41 → FBP 21:43 → WFO 08-10
PROVIDERS: ATTEND Obstetrics & Gynecology
DX: O13.3 Gestational [pregnancy-induced] hypertension without significant proteinuria, third trimester (principal); Z3A.37 37 weeks gestation of pregnancy; O99.891 Other specified diseases and conditions complicating pregnancy; R51.9 Headache, unspecified
CPT/HCPCS: 99212

== ENCOUNTER 2020-08-10 12:56 | Inpatient (IN) | payer OTHER ==
--- NOTE | 2020-08-10 13:54 | HISTORY & PHYSICAL EXAMINATION ---
Admit History - : 1 Parity: 0 Complications This : positive: induced HTN Smoking Status: Never smoker - Other Maternal History Other Maternal History: Patient is a 20 yo at 38+o wga here with continued high blood pressures and headache unresponsive to pain medications. Patient was seen in clinic yesterday and had a blood pressure inthe 140s/90s. She was seen in in triage and blood pressures were high normal. She had negative PIH labs. She returned agian later that evening reporting elevated blood pressures at home and severe headache with nausea and vomiting. She has had headaches throughout the . She was given Reglan for the headache and noted improvement. She was discharged to home. She presents today with report of consistently elevated blood pressures at home and severe headache that has been unremitting since the night before. Given the presence of elevated blood pressures on 3 different occasions, she meets criteria for gestational hypertension and is admitted for induction of labor. ETA: after admission, she again showed systolics in the 150s. Initial U/S: @6.6 wks gestation, RADHA 08/24/2020 O Neg, Rubella Immune Genetic testing: Ordered FAS: Anterior/cervical length 3.8/EFW 78%/3 VC/FAS within normal limits. Glucola: 114. Has had Rhogam at 28 weeks and 31 weeks Tdap 05/26/2020. GBS neg HSV denies . Breast pump Rx given. Mode of delivery: Anticipate . contraception: To be determined. Pap 01/29/2020 within normal limits. Meds/Allgy - Home Medications Home Medications: Ambulatory Orders Medication Instructions Recorded Confirmed Hydrocodone/Acetaminophen 1 - 2 each PO Q6H PRN #14 tablet 12/15/18 [Hydrocodon-Acetaminophen 5-325] Ondansetron Odt [Zofran] 4 mg TL Q6H PRN #10 tablet 12/15/18 Hydrocodone/Acetaminophen [[place] 1 each PO Q6H PRN #15 tablet 10/06/19 5-325 Tablet] Naproxen 500 mg PO BID #20 tablet 10/06/19 Ondansetron Odt [Zofran] 4 mg TL Q6H PRN #10 tablet 10/06/19 - Allergies Allergies/Adverse Reactions: Allergies Allergy/AdvReac Type Severity Reaction Status Date / Time pollen extracts Allergy Intermediate Unknown Verified 08/10/20 14:08 Review of Systems - Other Findings Other Findings: As per HPI, otherwise remaining systems are negative. Physical - Abdominal Exam Vital Signs: Temp Pulse Resp BP Pulse Ox 98.2 F 95 18 128/74 99 08/10/20 13:09 08/10/20 13:14 08/10/20 13:14 08/10/20 13:14 08/10/20 13:14 Contraction Frequency (min/apart): quiet - Monitoring Heart Rate Baseline: 135 mod crow 15x15 accels no decels Strip Review: positive: Category I - Presentation Presentation: positive: Vertex - Vaginal Exam Membranes: positive: Membranes intact Dilation (in cm): 2 Effacement (%): 20 Station: positive: -2 Cervical Position: positive: Posterior - Other Notes Labor Progress Note/Additional Text: GEN: NAD HEAD: NCAT EYES: No scleral icterus or conjunctival injection NECK: No cervical LAD or TM CV: RRR RESP: CTAB, normal effort ABD: S&NT/ND PSYCH: appropriate affect NEURO: alert and oriented, normal gait and coordination EXT: WWP SVE performed in clinic Cat I tracing vertex by bedside US Plan for Labor - Plan For Labor Plan for Labor: IOL for gestational HTN: IOL: R/B/A reviewed for IOL with cervical ripening Written informed consent obtained Will start with cervical ripening with misoprostol Reviewed possibility of cutler baloon placement Pitocin when favorable AROM as indicated GHTN: mild range pressures. Role of ALVARENGA reviewed as possible manifestation of severe pre-eclampsia. Unclear given presence of ALVARENGA throughout -PIH labs wnl -reviewed possible magnesium infusion with unremitting ALVARENGA FWB: vertex, GBS neg, Cat I tracing, well grown -cEFM In-patient care
[2020-08-10] MEDS ORDERED: LIDOCAINE-MPF 1% 30 ML VIAL ID PRN (13:55)
[2020-08-10] MEDS ORDERED: ONDANSETRON ODT 4 MG TABLET TL PRN (13:55)
[2020-08-10] MEDS ORDERED: miSOPROStoL 200 MCG TABLET PR ONE (13:55)
[2020-08-10] MEDS ORDERED: METOCLOPRAMIDE 10 MG TABLET PO PRN (13:55)
[2020-08-10] MEDS ORDERED: ACETAMINOPHEN 325 MG TABLET PO PRN (13:55)
[2020-08-10] MEDS ORDERED: fentaNYL 100 MCG/2 ML VIAL IVP PRN (13:55)
[2020-08-10] MEDS ORDERED: TRANEXAMIC ACID 1,000 MG in SODIUM CHLORIDE 0.9% 100ML 100 ML IV PRN (13:55)
[2020-08-10] MEDS ORDERED: miSOPROStoL 200 MCG TABLET BC PRN (13:55)
[2020-08-10] MEDS ORDERED: OXYTOCIN 10 UNIT/ML VIAL IM PRN (13:55)
[2020-08-10] MEDS ORDERED: ONDANSETRON 4 MG/2 ML VIAL IVP PRN (13:55)
[2020-08-10] MEDS ORDERED: CARBOPROST TROMETHAMINE 250 MCG/ML AMP IM PRN (13:55)
[2020-08-10] MEDS ORDERED: SODIUM CHLORIDE FLUSH 0.9% 10 ML SYRINGE IVP PRN (13:55)
[2020-08-10] MEDS ORDERED: OXYTOCIN/SODIUM CHLORIDE 500 ML IV PRN ×2 (13:55)
[2020-08-10] MEDS ORDERED: LACTATED RINGERS 1,000 ML IV SCH (14:00)
[2020-08-10] MEDS ORDERED: OXYTOCIN/SODIUM CHLORIDE 500 ML IV SCH (14:00)
[2020-08-10 14:25] LABS: PROTEIN/CREATININE RATIO,URINE 0.1 (<=0.2)
[2020-08-10 15:12] LABS: BASOPHILS % (AUTO) 0.3 %; EOSINOPHILS % (AUTO) 0.2 %; HGB - HEMOGLOBIN 12.7 g/dL (12.0-16.0); LYMPHOCYTES # (AUTO) 1.3 10^3/uL (1.5-3.5); LYMPHOCYTES % (AUTO) 11.4 %; MEAN CORPUSCULAR HGB CONC 34.4 g/dL (32.0-36.0); MEAN CORPUSCULAR VOLUME 92.9 fL (81.0-99.0); MEAN PLATELET VOLUME 12.1 fL (7.9-10.8); MONOCYTES # (AUTO) 0.7 10^3/uL (0.0-1.0); MONOCYTES % (AUTO) 5.9 %; NEUTROPHILS # (AUTO) 9.1 10^3/uL (1.5-6.6); NEUTROPHILS % (AUTO) 81.8 %; PLT - PLATELET COUNT 180 10^3/uL (130-450); RED BLOOD COUNT 3.97 10^6/uL (4.20-5.40); RED CELL DISTRIBUTION WIDTH 13.2 % (12.0-15.0); WHITE BLOOD COUNT 11.2 x10^3/uL (4.8-10.8)
[2020-08-10] MEDS: miSOPROStoL 100 MCG TABLET BC SCH ×2 (15:59→20:02)
[2020-08-10] MEDS ORDERED: SODIUM CHLORIDE FLUSH 0.9% 10 ML SYRINGE IVP SCH (17:00)
[2020-08-10] MEDS ORDERED: diphenhydrAMINE 25 MG CAPSULE PO PRN (20:01)
[2020-08-10] MEDS ORDERED: TERBUTALINE 1 MG/ML VIAL SUBQ PRN (20:02)
[2020-08-11] MEDS: miSOPROStoL 100 MCG TABLET BC SCH (00:41)
--- NOTE | 2020-08-11 00:43 | PROVIDER PROGRESS NOTE ---
Subjective - Prog Note Date Prog Note Date: 08/11/20 Prog Note Time: 00:41 - Subjective Subjective: Patient awake and bouncing on yoga ball. Third dose miso held due to frequent contractions, now slowing. BPs wnl EFM 145 mod crow 15x15 accels no decels TOCO:Q4-5 5 Given 3rd dose miso Cont with IOL Anticipate Objective - Vital Signs/Intake & Output Vital Signs: Vital Signs x48h Temp Pulse Resp BP Pulse Ox 08/10/20 20:04 98.1 F 82 16 129/78 100 - Lab Results Fish Bones: 08/10/20 14:50 Other Labs: Lab Results x24hrs 08/10/20 08/10/20 08/10/20 Range/Units 14:50 14:50 13:00 WBC 11.2 H (4.8-10.8) x10^3/uL RBC 3.97 L (4.20-5.40) 10^6/uL Hgb 12.7 (12.0-16.0) g/dL Hct 36.9 L (37.0-47.0) % MCV 92.9 (81.0-99.0) fL MCH 32.0 H (27.0-31.0) pg MCHC 34.4 (32.0-36.0) g/dL RDW 13.2 (12.0-15.0) % Plt Count 180 (130-450) 10^3/uL MPV 12.1 H (7.9-10.8) fL Neut # (Auto) 9.1 H (1.5-6.6) 10^3/uL Lymph # (Auto) 1.3 L (1.5-3.5) 10^3/uL [place] # (Auto) 0.7 (0.0-1.0) 10^3/uL Eos # (Auto) 0.0 (0.0-0.7) 10^3/uL Baso # (Auto) 0.0 (0.0-0.1) 10^3/uL Absolute Nucleated RBC 0.00 x10^3/uL Nucleated RBC % 0.0 /100WBC Urine Creatinine 83.0 mg/dL Ur Total Protein Timed 6 mg/dL Protein/Creatinin Ratio 0.1 (<=0.2) Blood Type O NEGATIVE Antibody Screen POSITIVE Antibody Identification See Comments
--- NOTE | 2020-08-11 05:10 | PROVIDER PROGRESS NOTE ---
Subjective - Prog Note Date Prog Note Date: 08/11/20 Prog Note Time: 05:09 - Subjective Subjective: Patient comfortable with some back pain. Now s/p miso x3. SVE /-2/mid/med Cat I tracing Starting pitocin Objective - Lab Results Fish Bones: 08/10/20 14:50 Other Labs: Lab Results x24hrs 08/10/20 08/10/20 08/10/20 Range/Units 14:50 14:50 13:00 WBC 11.2 H (4.8-10.8) x10^3/uL RBC 3.97 L (4.20-5.40) 10^6/uL Hgb 12.7 (12.0-16.0) g/dL Hct 36.9 L (37.0-47.0) % MCV 92.9 (81.0-99.0) fL MCH 32.0 H (27.0-31.0) pg MCHC 34.4 (32.0-36.0) g/dL RDW 13.2 (12.0-15.0) % Plt Count 180 (130-450) 10^3/uL MPV 12.1 H (7.9-10.8) fL Neut # (Auto) 9.1 H (1.5-6.6) 10^3/uL Lymph # (Auto) 1.3 L (1.5-3.5) 10^3/uL [place] # (Auto) 0.7 (0.0-1.0) 10^3/uL Eos # (Auto) 0.0 (0.0-0.7) 10^3/uL Baso # (Auto) 0.0 (0.0-0.1) 10^3/uL Absolute Nucleated RBC 0.00 x10^3/uL Nucleated RBC % 0.0 /100WBC Urine Creatinine 83.0 mg/dL Ur Total Protein Timed 6 mg/dL Protein/Creatinin Ratio 0.1 (<=0.2) Blood Type O NEGATIVE Antibody Screen POSITIVE Antibody Identification See Comments
--- NOTE | 2020-08-11 08:28 | PROVIDER PROGRESS NOTE ---
Labor Progress Note - Uterine Monitoring Uterine Monitoring Mode: positive: External toco Contraction Frequency (min/apart): 2-3 Contraction Intensity: positive: Moderate Uterine Resting Tone: positive: Soft - Monitoring Monitor Mode: positive: External ultrasound Heart Rate Baseline: 130 Heart Rate Variability: positive: Moderate (6-25 bmp) Decelerations: positive: None Strip Review: positive: Category I - Vaginal Exam Dilation (in cm): 4 Effacement (%): 80 Station: 0 Cervical Position: Posterior - Labor Progress Note Labor Progress Note/Additional Text: Slow progress not tolerating 3 of pit but doing ok on 2 Hx of Hep C pos nondetectable continue to move forward
[2020-08-11] MEDS ORDERED: RHO(D) IMMUNE GLOBULIN 300 MCG SYRINGE IM ONE (12:55)
[2020-08-11] MEDS ORDERED: oxyCODONE 5 MG TABLET PO PRN (12:55)
[2020-08-11] MEDS ORDERED: LACTATED RINGERS 1,000 ML IV SCH (13:00)
--- NOTE | 2020-08-11 13:01 | DELIVERY NOTE ---
Delivery Note - Labor Labor: positive: Induced by oxytocin - Delivery Method Delivery Method: positive: Spontaneous vaginal delivery - Cervical Ripening Method Cervical Ripening Method: positive: Misoprostil - Presentation Presentation: positive: Vertex, GUILLERMO - right occiput anterior (COMPOUND RIGHT HAND) - Nuchal Cord Nuchal Cord: positive: None - Anesthetic Anesthetic Type: Anesthetic: positive: Lidocaine - 1% plain - Amniotic Fluid Description Amniotic Fluid Description: positive: Clear - Episiotomy Type Episiotomy Type: positive: None - Laceration Laceration: positive: Labial (LEFT), Other (CLITORAL) - Suture Suture Type: positive: Vicryl Suture Size: positive: 3-0 - Delivery Outcome Delivery Outcome: positive: Livebirth - [place]: positive: Suctioned, Bulb syringe, Stimulated sex: positive: Female - Cord Cord: positive: 3 vessels - Placenta Placenta: positive: Intact, Clot - Estimated Blood Loss Estimated Blood Loss (in cc): 300 - Delivery Comments (Free Text/Narrative) Delivery Comments (Free Text/Narrative): SEE DICTATION
--- NOTE | 2020-08-11 15:52 | PROCEDURE REPORT ---
DATE OF SERVICE: 08/11/2020 Physician: Jose Cramer MD DELIVERY NOTE: The patient received 3 doses of misoprostol for cervical ripening for an indication of gestational hypertension. She reached 4 cm on the morning of the . She had Pitocin initiated, but had difficulties with some decelerations with 3 units of Pitocin, so, this was decreased to 2. She continued to progress with an adequate heart rate. She spontaneously ruptured at 10:03 at 6 cm and progressed to complete at 11:36. She started pushing at 11:38 with excellent effort. At 11:59, she delivered a live female , Apgars 9 and 10, over an intact perineum. At the time of delivery, the infant was right occiput anterior, with a right compound hand. At the time of delivery, the was vigorous and was placed on the maternal abdomen. The cord was allowed to continue to pulsate and was finally clamped 6 minutes after delivery. The placenta followed intact It was inspected and noted to have an area of clot adherent to it. The perineum was inspected. She had a laceration at the clitoris as well as the left labia minora and an abrasion up on the labia minora anteriorly on the right-hand side. Following local anesthesia with 1% lidocaine, the left labial as well as clitoral lacerations were closed with 3-0 Vicryl. The patient tolerated the procedure well and both infant and mother are doing well at this time. TD: 08/11/2020 13:07 GISELE
[2020-08-11] MEDS: WITCH HAZEL/GLYCERIN 1 PAD TOP PRN (17:54)
[2020-08-11] MEDS ORDERED: HYDROCORTISONE 1% CREAM 28 GM TUBE TOP SCH (21:00)
[2020-08-12] MEDS: DOCUSATE SODIUM 100 MG CAPSULE PO SCH ×2 (11:13→17:27)
--- NOTE | 2020-08-12 11:16 | PROVIDER PROGRESS NOTE ---
Subjective - Prog Note Date Prog Note Date: 08/12/20 Prog Note Time: 11:14 - Subjective Pt reports feeling: Improved (Pain well controled. 08/21. breast feeding. voiding. no stool yet) Objective - Vital Signs/Intake & Output Reviewed Vital Signs: Yes Vital Signs: Vital Signs x48h Temp Pulse Resp BP Pulse Ox 08/12/20 09:00 36.6 C 88 18 118/70 100 Intake & Output: Intake & Output 08/09/20 08/10/20 08/11/20 08/12/20 23:59 23:59 23:59 23:59 Intake Total 1500 Output Total 1400 Balance 100 - Objective General Appearance: positive: No acute distress, Alert Abdomen: positive: Non-tender, Mass (U-2 nontender) Extremities: negative: Calf tenderness, Korina's sign/cords - Lab Results Fish Bones: 08/12/20 04:40 Other Labs: Lab Results x24hrs 08/12/20 08/11/20 08/10/20 Range/Units 04:40 14:40 15:00 Hgb 10.6 L (12.0-16.0) g/dL Coronavirus (PCR) NEGATIVE Blood Type O NEGATIVE Weak D (Du) WEAK-D NEGATIVE Maternal Bleed NEGATIVE (NEGATIVE) Assessment/Plan - Problem List (1) (spontaneous vaginal delivery) Impression: excellent progress. Mild post anemia.
[2020-08-12] MEDS: IBUPROFEN 600 MG TABLET PO SCH ×3 (17:27→17:29)
[2020-08-13] MEDS: DOCUSATE SODIUM 100 MG CAPSULE PO SCH (07:50)
[2020-08-13 08:01] VITALS: BP 126/71
--- NOTE | 2020-08-13 09:59 | PROVIDER PROGRESS NOTE ---
Subjective - Prog Note Date Prog Note Date: 08/13/20 Prog Note Time: 09:57 - Subjective Pt reports feeling: Improved (Pain controled without medication. breast feeding. Postivie stool.) Objective - Vital Signs/Intake & Output Reviewed Vital Signs: Yes Vital Signs: Vital Signs x48h Temp Pulse Resp BP Pulse Ox 08/13/20 07:59 37.3 C 85 18 126/71 96 08/13/20 04:30 36.9 C 86 18 131/78 H 99 Intake & Output: Intake & Output 08/10/20 08/11/20 08/12/20 08/13/20 23:59 23:59 23:59 23:59 Intake Total 1500 Output Total 1400 Balance 100 - Objective General Appearance: positive: No acute distress, Alert Eyes Bilateral: positive: Normal inspection, PERRL Cardiovascular: positive: Regular rate & rhythm, No murmur, No gallop Abdomen: positive: Non-tender, No distention, Mass (U-3). negative: Tenderness Extremities: negative: Calf tenderness, Korina's sign/cords Neurologic/Psychiatric: positive: Oriented x3 - Lab Results Fish Bones: 08/12/20 04:40 Assessment/Plan - Problem List (1) (spontaneous vaginal delivery) Impression: recovering well No HTN Good pain control with any narcotics. Reviewed Berast feeding Mastitis Contraception Discharge medications: Home supply Motrin tylenol PNV RTC one week
--- NOTE | 2020-08-13 10:13 | Discharge Plan ---
Discharge Plan Problem Reviewed?: Yes Disposition: Home, Self Care Condition: Good Diet: Regular Activity Restrictions: pelvic rest 6 wks Shower Restrictions: No Driving Restrictions: No Weight Bearing: Full Weight No Smoking: If you smoke, Please STOP! Call for help.
--- NOTE | 2020-08-13 10:24 | DISCHARGE SUMMARY ---
Physician: Jose Cramer MD DATE OF ADMISSION: 08/10/2020 DATE OF DISCHARGE: 08/12/2020 ADMITTING DIAGNOSES 1. A 20-year-old G1, P0 at 38.0 weeks. 2. Gestational hypertension. 3. Hep C Ab pos, RNA nondetectable 4. Rh negative DISCHARGE DIAGNOSES 1. A 20-year-old G1, P0 at 38.0 weeks. 2. Gestational hypertension. 3. Compound presentation. 4. Hep C Ab pos, RNA nondetectable 5. Rh negative PROCEDURES 1. Misoprostol. 2. Spontaneous vaginal delivery, right occiput anterior compound presentation, first-degree laceration. PRESENTING HISTORY: Patient is a 20-year-old primigravida who had been seen the day before admission with high blood pressure. She had PIH labs performed, which were negative. Her pressures normalized. She presented back with headache as well as nausea and vomiting and again, mildly elevated blood pressures. For this reason, it was decided to proceed on with induction. Her course had been unremarkable with the exception that she was O negative and she received RhoGAM. LABORATORIES: Patient's CBC on admission showed a white count of 11.2, hemoglobin 12.7, hematocrit was 36.9. Platelets were 180. her hemoglobin fell to 10.6. She had a negative coronavirus. Her protein- creatinine ratio on admission was 0.1. HOSPITAL COURSE: The patient received three doses of misoprostol. On the morning of 08/11/2020, she reached 4 cm. She received Pitocin and had some difficulty with deceleration, but decreasing the two, she showed excellent progress and has a category 1 strip. She reached complete at 11:36, started pushing at 11:38 and, with excellent effort, delivered the at 11:49; a female infant with Apgars 9 and 10 over an intact perineum. The was noted to be right occiput anterior, with a compound hand presentation. At time of delivery, she had a small left labial laceration as well as a right labial laceration as well as a clitoral laceration. The clitoral laceration was closed with 3-0 Vicryl as well as the right labial. Blood loss was minimal during delivery. Her course has been unremarkable. Her blood pressures have normalized. She is being sent home today. She is taking a home supply of Motrin, Tylenol as well as instructed on her vitamins as she has developed a mild anemia. We discussed , contraception as well as mastitis. She is supposed to see us back in one week. TD: 08/13/2020 10:13 GISELE
[2020-08-13] MEDS: WITCH HAZEL/GLYCERIN 1 PAD TOP PRN (11:50)
--- NOTE | 2020-08-13 11:51 | Labor Flowsheet ---
Labor Flowsheet Datetime Report Generated by CPN: 08/13/2020 11:51 Datetime: 08/13/2020 07:42 VITAL SIGNS NBP Sys/Kala/Mean (mmHg): 126 : 71 : 83 Pulse: 90 Datetime: 08/12/2020 16:25 SpO2 (%): 100 Datetime: 08/11/2020 12:30 Respirations: 20 Temperature (C): 37.3 Temperature Route: Oral Datetime: 08/11/2020 12:02 MEDICATIONS Pitocin (milliunits): Started @ 999 Datetime: 08/11/2020 12:00 Stage of : Recovery Datetime: 08/11/2020 11:54 UTERINE ACTIVITY Monitor Mode: External Frequency (min): 1-2 Quality: Strong Duration (sec): 40-100 Pattern: Normal: <= 5 Contractions in 10 Minutes Resting Tone (Palpate): Relaxed ASSESSMENT A Monitor Mode: Telemetry FHR Baseline Rate : 135 Variability: Moderate 6-25 bpm Accelerations: 15X15 Decelerations: Early Category: Category I Datetime: 08/11/2020 11:38 STAGE 2 Pushing: Coached on Pushing; Urge to Push Pushing Position: Pushing with Contractions; Pushing Lithotomy Pushing Progress: Descent with Pushing; Perineal Bulging Datetime: 08/11/2020 11:36 VAGINAL EXAM Dilatation (cm): 10.0 Effacement (%): 100 Station: 2 Exam by: Dr. Giem Datetime: 08/11/2020 11:34 Patient Care Comments: Dr. Giem @ bedside Datetime: 08/11/2020 11:28 Provider Notified (Name): Dr. Giem Communication Comments: Requested provider to come to unit. Datetime: 08/11/2020 11:26 Comments: changed from tele to wired monitors Datetime: 08/11/2020 11:22 Patient Position/Activity: High Fowlers Datetime: 08/11/2020 11:00 LaborFlag: Labor Datetime: 08/11/2020 10:20 Monitor Interventions for UA: [place] Adjusted Datetime: 08/11/2020 10:13 COMMUNICATION Communication: Call/Page Placed to Provider Datetime: 08/11/2020 10:10 Cervix, Consistency: Soft Cervix, Position: Midposition Datetime: 08/11/2020 10:03 Membrane Status: Ruptured Membranes Rupture Method: Spontaneous Amniotic Fluid Color: Clear Amniotic Fluid Amount: Moderate Datetime: 08/11/2020 09:50 Contraction Comments: no ctx noted from 0935 to 0944, patient repositioned, toco adjusted. Datetime: 08/11/2020 08:42 Monitor Interventions for FHR: Ultrasound Adjusted Datetime: 08/11/2020 08:29 I/O Interventions: Up to BR Datetime: 08/11/2020 07:15 Medication Comments: Pitocin decreased d/t tachysystole Datetime: 08/11/2020 07:13 PAIN Pain Scale: 3 Pain Presence: Intermittent Pain Type: Cramping; Contraction Pain Location: Abdomen; Back Pain Relief Measures: Comfort Measures Pain Coping: Talking Through Contractions Datetime: 08/11/2020 06:20 Pain Assessment Comments: resting Datetime: 08/11/2020 05:14 MATERNAL ASSESSMENT Level of Consciousness: Alert DTR's/Clonus: DTRs 3+ Headache: Denies Nausea/Vomiting: Denies RUQ Epigastric Pain: Denies PATIENT CARE IV/Blood Work: IV Infusing per Order; New IV Bag Hung; IV Bag Number @ 1 Datetime: 08/11/2020 05:13 Pitocin Checklist: At Least 1 Acceleration of 15 bpm x 15 Seconds in 30 Minutes or Adequate Variabi lity; No More than 1 Late Deceleration Occurred in Past 30 Minutes; No More than 2 Variable Decelerat ions > 60 Seconds in Duration and decreasing >60 bpm in 30 minutes; No More than 5 Uterine Contractio ns in 10 Minutes for any 20 Minute Interval; Uterus Palpates Soft between Contractions Datetime: 08/11/2020 04:59 Vaginal Bleeding: None Datetime: 08/11/2020 01:59 Comfort Measures: Hot Shower/Tub/Spa Datetime: 08/11/2020 00:43 Cervical Ripening Agents: Cytotec @ Datetime: 08/11/2020 00:36 Provider Reviewed Strip: Yes Notification Reason: Labor Status; Uterine Activity; Pain Datetime: 08/10/2020 20:56 Analgesics/Sedatives: Benadryl (mg) @ 25 PO Datetime: 08/10/2020 19:58 Breath Sounds, Left: Clear and Equal Breath Sounds, Right: Clear and Equal Datetime: 08/10/2020 18:30 FHR Baseline Changes: No Baseline Change Oxygen Method: Room Air Datetime: 08/10/2020 15:30 TEACHING Instructional Method: Verbal; Patient Instructed; Family/Support Person Instructed; Verbalized Unde rstanding Plan of Care: Plan of Care Discussed; Vaginal Delivery; Labor; Induction; Gestational Hypertension/ Preeclampsia/Eclampsia Unit Routine: [place] to Room; Call Riddle; Bed; Visiting Policy; Phone/Cell Phone Use; Handwashing; S afety/Fall Risk Prevention; Diet/Nutrition Services; Bathroom Privileges; Medications Labor/Induction: Labor Stages; Cervical Ripening; Induction; Artificial Rupture of Membranes; [place] ium; Interventions; Activity; Pushing Methods Pain Management: PRN Medications; Pain Scale/Goals; Comfort Measures Medications: Cervical Ripening; Pitocin; Magnesium Sulfate Related: Common Discomforts of ; Maternal Physical Changes; Maternal Emotional C hanges; Hydration; Activity and Rest
[2020-08-15 08:24] LABS: HCV RNA QUANT RT PCR <15 NOT DETECTED IU/mL
== END 2020-08-13 11:45 | disposition home or self-care (01) | DRG 768 ==
LOC: WFO 12:56 → FBP 12:59 → WFO 14:58
PROVIDERS: ADMIT Obstetrics & Gynecology; ATTEND Obstetrics & Gynecology
PROC: 10E0XZZ Delivery of Products of Conception, External Approach (ICD-10-PCS; principal; 2020-08-10)
PROC: 0UQJXZZ Repair Clitoris, External Approach (ICD-10-PCS; 2020-08-10)
PROC: 0UQMXZZ Repair Vulva, External Approach (ICD-10-PCS; 2020-08-10)
DX: O13.4 Gestational [pregnancy-induced] hypertension without significant proteinuria, complicating childbirth (principal); Z37.0 Single live birth; Z3A.38 38 weeks gestation of pregnancy; O32.6XX0 Maternal care for compound presentation, not applicable or unspecified; O90.81 Anemia of the puerperium; O26.893 Other specified pregnancy related conditions, third trimester; Z67.41 Type O blood, Rh negative; Z20.5 Contact with and (suspected) exposure to viral hepatitis; Z79.891 Long term (current) use of opiate analgesic; Z79.899 Other long term (current) drug therapy; Z20.828 Contact with and (suspected) exposure to other viral communicable diseases
CPT/HCPCS: 36415; 59025; 82570; 83033; 84156; 85018; 85025; 86850; 86870; 86900; 86901; 87522; 87635; 99212; A9270; J7120

== ENCOUNTER 2020-09-22 07:00 | Outpatient (CLI) | payer OTHER ==
[2020-09-22 21:47] LABS: TRICHOMONAS VAGINALIS DNA NEGATIVE (NEGATIVE)
== END 2020-09-22 23:59 | disposition home or self-care (01) ==
LOC: LAB.R 07:00
PROVIDERS: ATTEND Obstetrics & Gynecology
DX: Z11.3 Encounter for screening for infections with a predominantly sexual mode of transmission (principal)
CPT/HCPCS: 87491; 87591; 87661